=== PATIENT | male | born 1945 | race Caucasian/White ===

== ENCOUNTER → 2018-08-28 13:34 | Outpatient (CLI) | payer OTHER, SELFPAY ==
--- NOTE | 2018-08-28 | DI.ECHO.S_ITS ---
[facility] +---------+ : : [address] : [address] : : : : [address] : : : : Phone: [phone]+ Echocardiogram Report + + :Name: ELVIS WALLACE Study Date: 08/28/2018 Height: 71 in : :[facility] Weight: 228 lb : : Gender: Male BSA: 2.2 m2 : :: 1945 Age: 73 yrs BP: 148/70 mmHg: :Reason For Study: Mitral Valve - Replacement : : Performed By: Marycruz Avalos : :Referring: ROMEL LEES : + + Interpretation Summary Afib with controlled heart rate. Normal LV size and wall thickness. There is subtle septal hypokinesis c/w post-operative state. Otherwise normal wall motion. Normal LV systolic function. EF is 60-65%. Severe biatrial enlargement; borderline RV enlargement. Mitral valve is replaced by history with a mechanical bileaflet prosthesis. Prosthesis is functioning normally. Mean gradient is 6 mm Hg. Otherwise no significant valvular abnormalities. Compared to prior study 05/26/2010 no significant changes have occurred. Procedure: A two-dimensional transthoracic echocardiogram with color flow and Doppler was performed. The study quality was technically good. Comparison is made with the echocardiogram of . The patient was in atrial fibrillation with heart rates between 73-82 bpm during the exam. Left Ventricle: The left ventricle is normal in size, wall thickness, and systolic function without any focal wall motion abnormalities. The ejection fraction is estimated to be 60-65%. Diastolic function could not be accurately assessed due to atrial fibrillation. Right Ventricle: Borderline right ventricular enlargement. The right ventricular systolic function is normal. Atria: The left atrium is severely dilated. The right atrium is severely dilated. The interatrial septum is intact with no evidence for an atrial septal defect. Mitral Valve: There is a bi-leaflet ([employer]. [employer]) mechanical prosthesis. The prosthetic mitral valve is well-seated. There is no mitral regurgitation noted. Aortic Valve: The aortic valve is trileaflet. The aortic valve opens well. No aortic regurgitation is present. Tricuspid Valve: The tricuspid valve leaflets are thin and pliable. There is mild tricuspid regurgitation. The right ventricular systolic pressure is estimated to be at least 41 mmHg based on an estimated right atrial pressure of 8 mm Hg. Pulmonic Valve: The pulmonic valve is not well seen, but is grossly normal. There is trace pulmonic regurgitation. Great Vessels: The aortic root is mildly dilated. The ascending aorta is mildly enlarged. The aortic arch could not be visualized. The IVC is dilated (diameter is greater than 2.1 cm) yet it collapses greater than 50% with a sniff. This suggests a right atrial pressure of 8 mm Hg. Pericardium/ Pleura There is no pericardial effusion. There is no pleural effusion. MMode/2D Measurements & Calculations LVIDd: 4.3 cm Ao root diam: 3.9 cm LVIDs: 2.8 cm Aortic Jxn: 3.7 cm FS: 35.7 % asc Aorta Diam: 3.7 cm IVSd: 1.1 cm LVPWd: 0.86 cm LV shaffer. diameter/BSA (cm/m^2): 1.9 LV sys. diameter/BSA (cm/m^2): 1.3 LA dimension: 5.5 cm RA long axis: 6.6 cm LA A2 area: 36.5 cm2 RA area: 30.7 cm2 LA A4 area: 39.1 cm2 RA vol: 120.8 ml LA length (vol): 7.5 cm RA : 54.2 ml/m2 LA vol: 160.9 ml IVC diam: 2.1 cm LA vol index: 72.1 ml/m2 RVDd major: 6.2 cm RVD1 (basal): 4.7 cm RVD2 (mid): 3.6 cm Doppler Measurements & Calculations Ao V2 max: 145.9 cm/sec MV P1/2t: 98.2 msec Ao V2 mean: 86.4 cm/sec Ao max P.5 mmHg Ao mean P.6 mmHg Ao V2 VTI: 27.3 cm TR max dea: 287.2 cm/sec MV V2 mean: 107.4 cm/sec TR max P.0 mmHg MV mean P.0 mmHg PA V2 max: 77.7 cm/sec MV V2 VTI: 47.0 cm PA V2 mean: 49.7 cm/sec PA mean P.2 mmHg PA Accel Time: 0.13 sec MV P1/2t max dea: 212.2 cm/sec MVA(P1/2t): 2.2 cm2 Electronically signed by: Tari Morris M.D. on Reading Physician:08/29/2018 07:42 AM
== END ==
PROVIDERS: PCP Family Medicine; Visit Provider Family Medicine
DX: I07.1 Rheumatic tricuspid insufficiency (principal); Z95.2 Presence of prosthetic heart valve
CPT/HCPCS: 93306

== ENCOUNTER 2018-10-27 06:32 | Day surgery (SDC) | payer OTHER, SELFPAY ==
--- NOTE | 2018-10-27 | PATH_ITS ---
[facility] Accession Number: [id number] . 01 Material submitted: . PART A: colon - MID RIGHT COLON POLYP PART B: colon - TRANSVERSE COLON POLYP PART C: body - POLYP @25CM . 02 Diagnosis: A. Mid Right Colon, Polyp, Biopsy: Tubular adenoma. . B. Transverse Colon, Polyp, Biopsy: Tubular adenoma. . C. Colon, Polyp at 25 cm, Biopsy: Colonic mucosa with mild superficial hyperplastic-type changes. Negative for dysplasia and malignancy. MRV/10/29/2018 . 02 Electronically signed: . Niecy Schmitz MD, Pathologist NPI- [id number] . 01 Gross description: . Part A: MID RIGHT COLON POLYP: Received in formalin are 2 fragment(s) of mary, soft tissue measuring 0.3 x 0.3 x 0.2 cm to 0.4 x 0.3 x 0.3 cm which is entirely submitted and submitted entirely in 1 cassette(s) Part B: TRANSVERSE COLON POLYP: Received in formalin is 1 fragment(s) of mary, soft tissue measuring 0.3 x 0.2 x 0.2 cm which is entirely submitted and submitted entirely in 1 cassette(s) Part C: POLYP @25CM: Received in formalin is 1 fragment(s) of mary, soft tissue measuring 0.3 x 0.2 x 0.2 cm which is entirely submitted and submitted entirely in 1 cassette(s) /DMC /D[facility] . 02 Pathologist provided ICD-10: D12.3, D12.6 . 02 CPT . 037528, 267421, 311025 Performed at: [address], [place], [place] [id number] MD Damian Musa MD Phone: [phone] Performed at: 02 [facility] [address] [place] [id number] MD Niecy Schmitz MD Phone: [phone]
[2018-10-27 07:09] VITALS: BMI 30.2
[2018-10-27 07:14] VITALS: BP 162/83; PULSE 63; RESP 15; TEMP 36.6; O2SAT 96
[2018-10-27] MEDS: SODIUM CHLORIDE 0.9% 1,000 ML 84 ML IV (07:24)
[2018-10-27] MEDS: fentaNYL 250 MCG/5 ML INJ IV (08:20)
[2018-10-27] MEDS: MIDAZOLAM 5 MG/5 ML VIAL IV (08:26)
--- NOTE | 2018-10-27 09:02 | PM.PREOP ---
Pre-operative Note Interval Note History & Physical reviewed/Exam performed by Physician: Yes Changes to H&P: No ASA Class (for procedural sedation): III
--- NOTE | 2018-10-27 09:02 | PM.OP.1 ---
Operative Date/Time/Diagnoses Date of procedure: 10/27/18 Time of procedure: 09:02 Pre-op diagnosis: Personal history of colon polyps Post-op diagnosis: same Procedure & Clinicians Procedure: Colonoscopy to the cecum with polypectomy times three Same procedure as scheduled: Yes Indications: Last colonoscopy 5 years ago Anesthesia Type: Sedation (Versed 7 mg; fentanyl 200 micro g) Operative Notes Findings: 1. Adequate prep 2. Pedunculated polyp approximately 4 mm in the mid ascending colon-removed with snare and cautery and retained for pathology. A 2nd 2-3 mm sessile polyp across from the larger polyp removed with cold forceps and retained for pathology 3. 2-3 mm sessile polyp in the mid transverse colon removed with cold forceps and retained for pathology 4. 3 mm polyp at 25 cm removed with cold forceps and retained for pathology 5. Mild diverticulosis with primarily small pockets limited to the sigmoid region 6. Grade 1 internal hemorrhoids Closure Type: not applicable Specimen(s): other (See list above) Procedure in detail: After obtaining informed consent, the patient was brought to the GI suite and placed in the left lateral decubitus position on the examination table. After placement of appropriate monitors, the patient was given incremental doses of Versed and Fentanyl until an appropriate level of sedation was achieved. A time out was held per SCOAP protocol. A digital rectal examination was performed and did not reveal any masses or obstructing lesions. The colonoscope was gently passed into the patient's anus and the entire colon navigated to the level of the cecum with minimal difficulty. Once in the cecum, the scope was withdrawn being sure to go before and beyond all mucosal folds and prominences and get an excellent examination. The findings are noted above. At the level of the rectal vault, the scope was retroflexed and the internal anal canal was examined. The scope was straightened and air aspirated from the colon. The instrument was removed from the patient's body and the procedure was concluded. The patient was allowed to awaken from sedation without difficulty and taken to the post-anesthesia care unit in good condition. Total sedation time was 35 minutes Total withdrawal time was 27 minutes Complications: none Condition: stable Disposition: PACU Plan for aftercare: 1. Discharge home 2. We will contact you with pathology results and any additional recommendations 3. Plan for next colonoscopy in 5 years or as clinically indicated 4. Resume warfarin and Lovenox as previously scheduled
[2018-10-27 09:05] VITALS: BP 127/78; PULSE 67; RESP 14; TEMP 36.3; O2SAT 95
[2018-10-27 09:12] VITALS: BP 129/63; PULSE 68; RESP 15; O2SAT 95
[2018-10-27 09:16] VITALS: BP 130/83; PULSE 63; RESP 16; O2SAT 97
[2018-10-27 09:27] VITALS: BP 144/73; PULSE 66; RESP 16; O2SAT 96
[2018-10-27 09:50] VITALS: BP 146/72; PULSE 65; RESP 16; TEMP 36.3; O2SAT 98
--- NOTE | 2018-10-27 09:57 | SUR.PHASEII ---
0955: Pt stable on feet and has dressed self. Pt assisted into wheelchair and was taken to private vehicle with and Daughter in stable condition. D/C paperwork has been reviewed and Pt and indicate understanding.
--- NOTE | 2018-10-27 13:08 | HP_ITS ---
History of Present Illness Date Patient Seen: 10/27/18 Time Patient Seen: 13:08 Chief complaint: BLOODY STOOLS Narrative: Mr. 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 He was seen by Dr. Villafana in our clinic. He is on chronic anticoagulation for atrial fibrillation. He reports that he has had multiple colonoscopies in the past and has bled after each 1. Dr. Villafana gave him instructions and he has been taking Lovenox twice daily while holding his Coumadin. He presents for screening colonoscopy. Patient History Medical History Atrial fibrillation (Acute) Benign prostatic hyperplasia (Acute) Personal history of colonic polyps (Acute) Surgical History History of colonoscopy with polypectomy (Acute) History of mitral valve replacement (Acute) Family History Mother No known health problems Father No known health problems Social History household members: spouse Smoking Status: Former smoker Family & Social History Family History Mother No known health problems Father No known health problems Social History: household members spouse Prior Living Arrangements House Safety & Behavioral: Feels Safe in Current Yes Environment Been Physically Hurt or No Threatened By a Person Suicidal Ideation Description None Suicide Plan Description No Plan Tobacco & Substance use: Smoking Status Former smoker alcohol intake frequency 3 or more drinks per day Substance Use Type does not use Meds Home Medications Medication Instructions Recorded Confirmed Type aspirin 81 mg PO DAILY #0 09/02/11 10/29/18 History losartan 100 mg PO DAILY #0 09/02/11 10/29/18 History warfarin 12.5 mg PO QDAY #0 09/02/11 10/29/18 History digoxin 250 mcg tablet 0.25 mg PO DAILY 09/24/18 10/29/18 History enoxaparin 80 mg/0.8 mL 80 mg SUBCUT Q12H #7.2 ml 09/24/18 10/29/18 Rx subcutaneous syringe metoprolol tartrate 100 mg tablet 100 mg PO QAM tab 09/24/18 10/29/18 History metoprolol tartrate 50 mg tablet 50 mg PO .qhs tab 09/24/18 10/29/18 History multivitamin tablet 1 tab PO DAILY 09/24/18 10/29/18 History sulfamethoxazole-trimethoprim See Rx Instructions .ROUTE .COMPLEX 10/27/18 10/29/18 History tamsulosin 0.4 mg PO DAILY 10/27/18 10/29/18 History Allergies Allergy/AdvReac Type Severity Reaction Status Date / Time No Known Drug Allergies Allergy Verified 10/27/18 07:08 Review of Systems Review of Systems All systems reviewed & are unremarkable except as noted in HPI and below Exam Vital Signs (past 8 hours): - 11/04/18 05:28 11/04/18 08:46 11/04/18 08:54 Temperature 97.7 F Pulse Rate 77 76 Respiratory Rate 16 Blood Pressure 139/73 130/73 Pulse Oximetry 96 98 11/04/18 09:00 Temperature 97.6 F Pulse Rate 76 Respiratory Rate 16 Blood Pressure 130/73 Pulse Oximetry 98 Oxygen Delivery Method Room Air Oxygen Flow Rate 0 Narrative Exam Narrative: Pleasant gentleman in no distress HEENT: Normocephalic and atraumatic, pupils equal round reactive to light accommodation with anicteric sclera Lungs: Clear bilaterally Heart: Irregularly irregular Abdomen: Soft, nontender, active bowel sounds Extremities: Warm well perfused Objective Labs Result Diagrams: 11/04/18 05:15 11/04/18 05:15 Labs: Laboratory Results - last 24 hr 11/04/18 11/04/18 11/04/18 05:15 05:15 05:15 WBC 7.2 RBC 2.84 L Hgb 9.1 L Hct 27.1 L MCV 95.3 MCH 31.9 MCHC 33.5 RDW 14.4 Plt Count 307 Neut % (Auto) 57.7 Lymph % (Auto) 18.2 L [place] % (Auto) 14.6 H Eos % (Auto) 8.7 H Baso % (Auto) 0.8 Neut # (Auto) 4200 Lymph # (Auto) 1300 [place] # (Auto) 1100 H Eos # (Auto) 600 H Baso # (Auto) 100 PT 15.5 H INR 1.3 Sodium 130 L Potassium 3.3 L Chloride 96 L Carbon Dioxide 28 BUN 5 L Creatinine 0.70 Estimated GFR > 60.0 BUN/Creatinine Ratio 7.1 Glucose 105 Calcium 8.9 Magnesium 1.7 11/04/18 11:40 WBC RBC Hgb Hct MCV MCH MCHC RDW Plt Count Neut % (Auto) Lymph % (Auto) [place] % (Auto) Eos % (Auto) Baso % (Auto) Neut # (Auto) Lymph # (Auto) [place] # (Auto) Eos # (Auto) Baso # (Auto) PT 15.6 H INR 1.3 Sodium Potassium Chloride Carbon Dioxide BUN Creatinine Estimated GFR BUN/Creatinine Ratio Glucose Calcium Magnesium Assessment & Plan Assessment & Plan narrative: Very pleasant 73-year-old gentleman here for a repeat colonoscopy for history of colon polyps. We discussed the risks and benefits of the procedure including the risk of recurrent bleeding. The patient expressed a desire to complete the procedure. Signed By:<Electronically signed by Britany Calixto MD>11/04/18 4723
== END 2018-10-27 09:55 ==
LOC: ENDO 06:34
PROVIDERS: PCP Family Medicine; Visit Provider Surgery
PROC: 0DJD8ZZ Inspection of Lower Intestinal Tract, Via Natural or Artificial Opening Endoscopic (ICD-10-PCS; CPT 45378; principal; 2018-10-27 07:45)
DX: Z86.010 Personal history of colon polyps (principal); K64.8 Other hemorrhoids; K57.30 Diverticulosis of large intestine without perforation or abscess without bleeding; D12.3 Benign neoplasm of transverse colon; D12.6 Benign neoplasm of colon, unspecified; I48.91 Unspecified atrial fibrillation; N40.0 Benign prostatic hyperplasia without lower urinary tract symptoms; Z79.01 Long term (current) use of anticoagulants; Z87.891 Personal history of nicotine dependence
CPT/HCPCS: 45380; 99152; 99153; J2250; J3010

== ENCOUNTER 2018-10-28 20:00 | Inpatient (IN) | payer OTHER, SELFPAY ==
[2018-10-28 20:26] VITALS: BP 174/93; PULSE 88; RESP 17; TEMP 36.1; O2SAT 98; BMI 29.9
[2018-10-28 22:00] VITALS: BP 81/47
[2018-10-28 22:15] VITALS: BP 85/56
[2018-10-28] MEDS: SODIUM CHLORIDE 0.9% 1,000 ML 1000 ML IV (22:15)
[2018-10-28 22:18] LABS: Add Manual Diff / Slide Review NO; Basophils Absolute Auto 100 /uL (0-100); Basophils Percent Auto 0.8 % (0-2); Eosinophils Absolute Auto 300 /uL (0-450); Eosinophils Percent Auto 3.8 % (2-4); Hematocrit 39.9 % (41-53); Hemoglobin 13.5 g/dL (13.5-17.5); Lymphocytes Absolute Auto 1500 /uL (1100-4500); Lymphocytes Percent Auto 20.2 % (25-40); Mean Corpuscular HGB Conc 33.9 % (30-36); Mean Corpuscular Hemoglobin 32.7 PG (26-34); Mean Corpuscular Volume 96.5 fL (80-100); Monocytes Absolute Auto 800 /uL (0-900); Monocytes Percent Auto 10.2 % (3-14); Neutrophils Absolute Auto 4900 /uL (1500-7000); Platelet Count 222 X10^3/uL (150-400); Red Blood Cell Count 4.13 X10^6/uL (4.5-5.9); Red Cell Distribution Width 12.8 % (11.6-14.8); White Blood Cell Count 7.6 X10^3/uL (4.5-11.0)
[2018-10-28 22:24] LABS: INR 1.2 (0.9-1.3); Prothrombin Time 13.5 SECONDS (10.1-12.7)
[2018-10-28 22:27] LABS: PTT Partial Thromboplastin Tim 48 SECONDS (26.4-36.2)
--- NOTE | 2018-10-28 22:28 | PC.NURSE ---
Pt states sudden onset dizziness. Blood pressure 81/47. Notified provider. Gave 250mL bolus per Dr. Lovelace. Some improvement.
[2018-10-28 22:29] LABS: Alanine Aminotransferase 46 IU/L (21-72); Albumin 4.2 g/dL (3.5-5.0); Albumin Globulin Ratio 1.5 (1.0-2.8); Alkaline Phosphatase 80 U/L (38-126); Aspartate Aminotransferase 54 IU/L (17-59); BUN Creatinine Ratio 17.1 (6-22); Blood Urea Nitrogen 12 mg/dL (9-20); Calcium 9.3 mg/dL (8.4-10.2); Carbon Dioxide 23 mmol/L (22-32); Chloride 96 mmol/L (98-107); Estimated Glomerular Filt Rate > 60.0 mL/min (>60); Globulin 2.8 g/dL (1.7-4.1); Glucose 127 mg/dL (80-110); HEMOLYSIS < 15 (0-50); Potassium 4.2 mmol/L (3.4-5.1); Sodium 128 mmol/L (137-145)
[2018-10-28 22:45] VITALS: BP 145/73; PULSE 95; RESP 23
[2018-10-29] VITALS (26 sets, daily range): BP systolic 83–131; BP diastolic 39–98; PULSE 80–119; RESP 9–20; TEMP 36.1–36.9; O2SAT 93–99; BMI 29.9
--- NOTE | 2018-10-29 00:28 | P.HP_ITS ---
History of Present Illness Date Patient Seen: 10/28/18 Time Patient Seen: 23:55 Chief complaint: BLOODY STOOLS Narrative: The patient is a 73-year-old male with PMH of CAD, HTN, MINI B, BPH, MVR (AC w/ coumadin), and h/o colon popyps. Patient presented to the ED on 10/28/2017 after experiencing 7 episodes of blood stools. Stools described as dark red. Symptoms started at approximately 1600. Patient reports having an episode of bloody diarrhea every half an hour. After presentation to the ED patient experienced lightheadedness and fatigue. Until that time and earlier during the day did not experience abdominal pain, nausea or vomiting. Denies hematemesis, and hematochezia. Denies rectal pain with defecation. Patient does report abdominal distention and bloating since 10/24/2018, which he notes to have developed after starting lovenox injections. On the morning on 10/27/2017 patient underwent colonoscopy for routine colorectal surveilance. During the procedure 4 colon polyps removed in retained for pathology. Colonoscopy also revealed mild diverticulosis that was limited to the sigmoid colon and grade 1 internal hemorrhoids. Initial lab work on presentation to the ED revealed a hemoglobin of 13.5. Upon arrival to the ED he notes experiencing lightheadedness, at that time he was also found to be hypotensive. BP improved with 1 L NS bolus. Patient has not experienced any chest pain, palpitation, abdominal pain, hematemesis, or further episodes of blo cornelio diarrhea. Patient is known to be chronically anticoagulated w/ Coumadin. He was asked to have coumadin stopped on 10/24/2018 in lieu of colonoscopy, in the interim he was bridged with lovenox. Coumadin was restarted on the morning of 10/28/2018. He was instructed to continue lovenox bridge until 10/30/2017. Patient History Medical History Atrial fibrillation (Acute) Benign prostatic hyperplasia (Acute) Personal history of colonic polyps (Acute) Surgical History (Updated 10/29/18 @ 01:39 by SAMY Wooten) History of colonoscopy with polypectomy (Acute) History of mitral valve replacement (Acute) Family History Mother No known health problems Father No known health problems Social History household members: spouse Smoking Status: Former smoker Family & Social History Family History Mother No known health problems Father No known health problems Social History: household members spouse Safety & Behavioral: Feels Safe in Current Yes Environment Been Physically Hurt or No Threatened By a Person Tobacco & Substance use: Smoking Status Former smoker alcohol intake frequency 0-2 drinks per day Substance Use Type does not use Meds Home Medications Medication Instructions Recorded Confirmed Type aspirin 81 mg PO DAILY #0 09/02/11 10/29/18 History losartan 100 mg PO DAILY #0 09/02/11 10/29/18 History warfarin 12.5 mg PO QDAY #0 09/02/11 10/29/18 History digoxin 250 mcg tablet 0.25 mg PO DAILY 09/24/18 10/27/18 History enoxaparin 80 mg/0.8 mL 80 mg SUBCUT Q12H #7.2 ml 09/24/18 10/27/18 Rx subcutaneous syringe metoprolol tartrate 100 mg tablet 100 mg PO QAM tab 09/24/18 10/29/18 History metoprolol tartrate 50 mg tablet 50 mg PO .qhs tab 09/24/18 10/29/18 History multivitamin tablet 1 tab PO DAILY 09/24/18 10/29/18 History sulfamethoxazole-trimethoprim See Rx Instructions .ROUTE .COMPLEX 10/27/18 10/29/18 History tamsulosin 0.4 mg PO DAILY 10/27/18 10/29/18 History Allergies Allergy/AdvReac Type Severity Reaction Status Date / Time No Known Drug Allergies Allergy Verified 10/27/18 07:08 Review of Systems Review of Systems All systems reviewed & are unremarkable except as noted in HPI and below Exam Vital Signs (past 8 hours): - 10/28/18 20:26 10/28/18 22:00 10/28/18 22:15 Temperature 96.9 F L Pulse Rate 88 Respiratory Rate 17 Blood Pressure 174/93 H Blood Pressure [Left Arm] 81/47 L 85/56 L Pulse Oximetry 98 10/28/18 22:45 Temperature Pulse Rate 95 H Respiratory Rate 23 Blood Pressure Blood Pressure [Left Arm] 145/73 H Pulse Oximetry Oxygen Delivery Method Room Air Narrative Exam Narrative: Constitutional: NAD Neurologic: AOx3, no focal neurological deficits Head: NC, AT Eyes: pupils equal and reactive, EOMI Ears: external ears normal, no otorrhea Nose: external nose normal, no rhinorrhea or epistaxis Throat: dry MM, oropharynx w/o exudate Neck: no masses, lymphadenopathy, or JVD Chest / Respiratory: equal chest rise, unlabored respiratory effort, CTAB Heart / CV: Irregularly irregular, click present tachycardic with light activity Abdomen / GI: round, moderately distended, non-tender to palpation, hypoactive BS, hematoma / significant ecchymosis present in the area of slightly above left iliac fossa / umbilical region : no suprapubic tenderness, no CVA Peripheral / Vascular: warm to touch, DP and PT pulses palpable, trace pre- tibial BLE edema Musc: full ROM of upper and lower extremities, adequate muscle tone and bulk Skin: abdominal ecchymosis (see GI section) Objective Labs Result Diagrams: 10/29/18 04:57 10/29/18 04:57 Labs: Laboratory Results - last 24 hr 10/28/18 10/28/18 10/28/18 22:00 22:00 22:00 WBC 7.6 RBC 4.13 L Hgb 13.5 Hct 39.9 L MCV 96.5 MCH 32.7 MCHC 33.9 RDW 12.8 Plt Count 222 Neut % (Auto) 65.0 Lymph % (Auto) 20.2 L [place] % (Auto) 10.2 Eos % (Auto) 3.8 Baso % (Auto) 0.8 Neut # (Auto) 4900 Lymph # (Auto) 1500 [place] # (Auto) 800 Eos # (Auto) 300 Baso # (Auto) 100 PT 13.5 H INR 1.2 APTT 48 H Sodium 128 L Potassium 4.2 Chloride 96 L Carbon Dioxide 23 BUN 12 Creatinine 0.70 Estimated GFR > 60.0 BUN/Creatinine Ratio 17.1 Glucose 127 H Calcium 9.3 Total Bilirubin 1.0 AST 54 ALT 46 Alkaline Phosphatase 80 Total Protein 7.0 Albumin 4.2 Globulin 2.8 Albumin/Globulin Ratio 1.5 Blood Type Antibody Screen 10/28/18 22:00 WBC RBC Hgb Hct MCV MCH MCHC RDW Plt Count Neut % (Auto) Lymph % (Auto) [place] % (Auto) Eos % (Auto) Baso % (Auto) Neut # (Auto) Lymph # (Auto) [place] # (Auto) Eos # (Auto) Baso # (Auto) PT INR APTT Sodium Potassium Chloride Carbon Dioxide BUN Creatinine Estimated GFR BUN/Creatinine Ratio Glucose Calcium Total Bilirubin AST ALT Alkaline Phosphatase Total Protein Albumin Globulin Albumin/Globulin Ratio Blood Type A Positive Antibody Screen Negative Assessment & Plan Assessment & Plan narrative: Acute GI hemorrhage, present on admission Suspected to be a post polypectomy complication in the setting of active anticoagulation w/ coumadin, lovenox, and ASA Hgb 13.5. Reported x7 episodes of melonic stools - Admit to ICU in lieu of active bleeding and hypotension - Tele monitoring - H/H Q4H, next scheduled for 0200 - Consider blood transfusion for H/H </ 7 or if symptomatic patient agrees to blood transfusion if need arises - Consult General Surgery - NPO, strict - Hold coumadin, ASA, and lovenox Abdominal distention, acute, present on admission w/ associated mid abdominal bruising - abdominal U/S in am to r/o hematoma Hypovolemia, acute, present on admission 2/2 acute blood loss - IVF Permanent atrial fibrillation, chronic condition, present on admission AFIB w/ controlled ventricular rate [employer] SET UP OPERATOR on metoprolol, digoxin, and Coumadin - hold coumadin (last dose on 10/28/2017) - hold off on restarting metoprolol at this time given hypotension (typical home dose metoprolol tartrate 100 mg QAM and 50 mg QPM) - resume digoxin H/O mitral valve repair, chronic condition, present on admission Echo 08/28/2018 Mitral valve was replaced with a mechanical bileaflet prosthesis. Prosthesis is functioning normally. Mean gradient is 6 mmHg. Otherwise no significant valvular abnormalities. 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 Wishes to be a full code. No health directive. Designates as a surrogate decision maker. Home medications reviewed and reconciled accordingly. VTE prophylaxis SCDs and lovenox
[2018-10-29] MEDS: PANTOPRAZOLE 40 MG VIAL IV ×2 (00:45→07:31)
--- NOTE | 2018-10-29 00:52 | PC.NURSE ---
Pt does not have a medication list with her. i asked family to please bring list in to hospital as soon as they can get it
--- NOTE | 2018-10-29 01:02 | PC.NURSE ---
Attempted to call report,RN still not available
[2018-10-29] MEDS: SODIUM CHLORIDE 0.9% 1,000 ML 100 ML IV ×3 (01:42→18:37)
[2018-10-29 02:04] LABS: Hemoglobin 11.7 g/dL (13.5-17.5)
[2018-10-29 05:12] LABS: Add Manual Diff / Slide Review NO; Basophils Absolute Auto 0 /uL (0-100); Basophils Percent Auto 0.7 % (0-2); Eosinophils Absolute Auto 100 /uL (0-450); Eosinophils Percent Auto 2.3 % (2-4); Hematocrit 32.2 % (41-53); Hemoglobin 10.9 g/dL (13.5-17.5); Lymphocytes Absolute Auto 1100 /uL (1100-4500); Lymphocytes Percent Auto 21.1 % (25-40); Mean Corpuscular Hemoglobin 32.7 PG (26-34); Mean Corpuscular Volume 96.2 fL (80-100); Monocytes Absolute Auto 700 /uL (0-900); Monocytes Percent Auto 12.6 % (3-14); Neutrophils Absolute Auto 3300 /uL (1500-7000); Neutrophils Percent Auto 63.3 % (50-75); Platelet Count 203 X10^3/uL (150-400); Red Blood Cell Count 3.35 X10^6/uL (4.5-5.9); Red Cell Distribution Width 12.7 % (11.6-14.8); White Blood Cell Count 5.2 X10^3/uL (4.5-11.0)
[2018-10-29 05:22] LABS: BUN Creatinine Ratio 14.3 (6-22); Blood Urea Nitrogen 10 mg/dL (9-20); Calcium 8.4 mg/dL (8.4-10.2); Carbon Dioxide 25 mmol/L (22-32); Chloride 97 mmol/L (98-107); Estimated Glomerular Filt Rate > 60.0 mL/min (>60); Glucose 130 mg/dL (80-110); HEMOLYSIS < 15 (0-50); Magnesium 1.5 mg/dL (1.6-2.3); Potassium 4.3 mmol/L (3.4-5.1); Sodium 128 mmol/L (137-145)
--- NOTE | 2018-10-29 05:26 | PC.ADMIT ---
[facility] Admission Note: The patient,Baltazar Reeves,73 y/o, was given written information regarding hospital policies, unit procedures and contact persons. Patient's smoking status: Former smoker. Vital Signs - 8 hr 10/28/18 22:00 10/28/18 22:15 10/28/18 22:45 Temperature Pulse Rate 95 H Respiratory Rate 23 Blood Pressure Blood Pressure [Left Arm] 81/47 L 85/56 L 145/73 H Pulse Oximetry 10/29/18 01:21 10/29/18 01:40 10/29/18 02:00 Temperature 96.9 F L Pulse Rate 101 H 99 H 102 H Respiratory Rate 11 L 16 Blood Pressure 131/98 H 129/83 116/95 H Blood Pressure [Left Arm] Pulse Oximetry 97 95 96 10/29/18 03:00 10/29/18 04:06 10/29/18 04:30 Temperature 97.2 F L Pulse Rate 94 H 93 H 95 H Respiratory Rate 16 14 14 Blood Pressure 115/59 L 109/64 131/60 Blood Pressure [Left Arm] Pulse Oximetry 95 96 99 Patient admittted to ICU at 0130, A/Ox4, able to transfer from stretcher to bed, says he is lightheaded, HR tachy up to 120s during activity, then down to 100 at rest, A-fib. BP 129/83. Denies abdominal pain, nausea, or urge to have BM at this time. NS @ 100ml/hr infusing. Patient and family oriented to room. Bed alarm on. See assessment notes.
--- NOTE | 2018-10-29 05:32 | PC.NURSE ---
Addendum entered by Kyleigh Sagastume R.N. 10/29/18 06:26: Attempt to use urinal while in bed, no success, noted that patient has swollen scrotum, he says that is normal d/t BPH. Scanned for 324ml. Original Note: 0500-Assist to BSC for BM, had large bloody stool, liquid red with maroon clots, approximately 800ml per PERSONNEL CLERKS SUPERVISOR. Patient dizzy, pale, and diaphoretic, HR up to 140, placed on 4L O2, assist back to bed without difficulty, will use bedpan for further stools. BP 131/60. Am lab drawn. H/H = 10.9/32.2. Blood consent signed, 2nd PIV inserted.
--- NOTE | 2018-10-29 05:51 | ED_ITS ---
HPI - GI Bleed General Chief complaint: GI Bleed Stated complaint: BLOODY STOOLS Time Seen by Provider: 10/28/18 21:40 Source: patient and family Mode of arrival: ambulatory Limitations: no limitations History of Present Illness HPI Narrative: 73-year-old male nonsmoker anticoagulated on Coumadin for mechanical valve presents with his in the chief complaint of multiple bright red stools. Patient had a routine scheduled colonoscopy yesterday and had 5 polyps clipped. He was told to resume his normal dosing of Coumadin today. He has now had 7 bright red, bloody stools and has some grumbling in his abdomen but denies any pain. he is feeling a bit fatigued but is not profoundly dizzy. MD complaint: gross hematochezia Onset (ago): hour(s) Severity: moderate Context: history of GI bleed Treatments Prior to Arrival: none Related Data Home Medications Medication Instructions Recorded Confirmed aspirin 81 mg PO DAILY #0 09/02/11 10/29/18 losartan 100 mg PO DAILY #0 09/02/11 10/29/18 warfarin 12.5 mg PO QDAY #0 09/02/11 10/29/18 digoxin 250 mcg tablet 0.25 mg PO DAILY 09/24/18 10/27/18 metoprolol tartrate 100 mg tablet 100 mg PO QAM tab 09/24/18 10/29/18 metoprolol tartrate 50 mg tablet 50 mg PO .qhs tab 09/24/18 10/29/18 multivitamin tablet 1 tab PO DAILY 09/24/18 10/29/18 sulfamethoxazole-trimethoprim See Rx Instructions .ROUTE .COMPLEX 10/27/18 10/29/18 tamsulosin 0.4 mg PO DAILY 10/27/18 10/29/18 Previous Rx's Medication Instructions Recorded enoxaparin 80 mg/0.8 mL 80 mg SUBCUT Q12H #7.2 ml 09/24/18 subcutaneous syringe Allergies Allergy/AdvReac Type Severity Reaction Status Date / Time No Known Drug Allergies Allergy Verified 10/27/18 07:08 Review of Systems Constitutional Denies chills, Denies fever(s), Denies lethargy and Denies weakness Eyes Denies change in vision, Denies eye discharge, Denies irritation and Denies loss of vision ENT Ears, Nose, Mouth, and Throat: Denies change in voice, Denies neck pain and De nies sore throat Cardiovascular Denies chest pain, Denies irregular heart rhythm, Denies lightheadedness, Denies palpitations, Denies dyspnea, Denies dyspnea on exertion and Denies orthopnea Respiratory Denies cough, Denies dyspnea, Denies dyspnea on exertion and Denies wheezing Gastrointestinal Gastrointestinal: Denies abdominal pain, Reports hematochezia, Reports change in bowel habits, Denies diarrhea, Denies nausea and Denies vomiting Genitourinary Denies hematuria, Denies flank pain, Denies urinary incontinence and Denies urinary urgency Musculoskeletal Denies neck pain Integumentary/Breasts Denies pruritus, Denies erythema, Denies rash and Denies wounds Neurologic Denies confusion, Denies loss of vision and Denies weakness Psychiatric Denies anxiety, Denies confusion, Denies depression, Denies homicidal ideation and Denies suicidal ideation Endocrine Denies palpitations Hematologic/Lymphatic Denies easy bruising Allergic/Immunologic Denies wheezing [facility] Medical History Atrial fibrillation (Acute) Benign prostatic hyperplasia (Acute) Personal history of colonic polyps (Acute) Surgical History (Updated 10/29/18 @ 01:39 by SAMY Wooten) History of colonoscopy with polypectomy (Acute) History of mitral valve replacement (Acute) Family History Mother No known health problems Father No known health problems Social History household members: spouse Smoking Status: Former smoker Family History Mother No known health problems Father No known health problems Social History household members: spouse Smoking Status: Former smoker Exam Narrative Exam Narrative: GENERAL: 73-year-old male appears stated age, in mild distress, obviously not feeling well HEAD: Atraumatic. Normocephalic. No temporal or scalp tenderness. EYES: Pupils equal round and reactive. Extraocular motions intact. No scleral icterus. No injection or drainage. ENT: Nose without bleeding, purulent drainage or septal hematoma. Throat without erythema, tonsillar hypertrophy or exudate. Uvula midline. Airway patent. NECK: Trachea midline. No JVD or lymphadenopathy. Supple, nontender, no meningeal signs. CARDIOVASCULAR: Regular rate and rhythm without murmurs, gallops, or rubs. RESPIRATORY: Clear to auscultation. Breath sounds equal bilaterally. No wheezes, rales, or rhonchi. GASTROINTESTINAL: Abdomen soft, non-tender, mild distention with increased bowel sounds. RECTAL: mild gross blood. No hemorrhoids or fissure EXTREMITIES: No clubbing, cyanosis, or edema. No joint tenderness, effusion, or edema noted. BACK: Nontender without deformity or crepitance. No flank tenderness. NEURO: AOx3. SKIN: No rash or erythema. Initial Vital Signs Initial Vital Signs: Vital Signs Temperature 96.9 F L 10/28/18 20:26 Pulse Rate 88 10/28/18 20:26 Respiratory Rate 17 10/28/18 20:26 Blood Pressure 174/93 H 10/28/18 20:26 Pulse Oximetry 98 10/28/18 20:26 Course Orders Ordered: ED Orders 10/28/18 22:00 Complete Blood Count AUTO DIFF Stat Comprehensive Metabolic Panel Stat Partial Thromboplastin Time Stat Prothrombin Time INR Stat Type and Screen Stat 10/29/18 01:45 MRSA PCR Stat 10/29/18 01:50 Hemoglobin Stat 10/29/18 03:40 Consult to General Surgery Routine 10/29/18 04:57 Basic Metabolic Panel Stat Complete Blood Count AUTO DIFF Stat Magnesium Stat Acetaminophen (Tylenol) 650 mg PO Q6HR PRN PRN Reason: As Needed for Fever/Mild Pain Sodium Chloride (Normal Saline 0.9%) 1,000 mls @ 100 mls/hr IV CONT COBY Last Admin: 10/29/18 01:42 Dose: 100 mls/hr Multivitamins (Tab-A-Oliver) 1 tab PO DAILY COBY Pantoprazole Sodium (Protonix) 40 mg IV DAILY COBY Last Admin: 10/29/18 00:45 Dose: 40 mg Tamsulosin HCl (Flomax) 0.4 mg PO DAILY [facility] Discontinued Medications Sodium Chloride (Normal Saline 0.9%) 1,000 mls @ 1,000 mls/hr IV BOLUS ONE Stop: 10/28/18 23:22 Last Infusion: 10/28/18 22:48 Dose: 0 mls/hr Admin: 10/28/18 22:15 Dose: 1,000 mls/hr Reevaluation(s) Reevaluation #1: The toe attempting to allow permissive hypotension while awaiting labs I was called to the bedside and the patient had become dizzy and lightheaded and nauseated. Blood pressure was noted to be in the 80s, IV fluids administered at 250 cc bolus and patient's pressure bumped back to 111 and he remained asymptomatic for the duration of his visit Consultations Consultation #1: call to General Surgery (Dominik) whom is happy to play a role in evaluation of patient in hospital Consultation #2: call to hospitalist whom is happy to accept patient Vital Signs - 8 hr 10/28/18 22:00 10/28/18 22:15 10/28/18 22:45 Temperature Pulse Rate 95 H Respiratory Rate 23 Blood Pressure Blood Pressure [Left Arm] 81/47 L 85/56 L 145/73 H Pulse Oximetry 10/29/18 01:21 10/29/18 01:40 10/29/18 02:00 Temperature 96.9 F L Pulse Rate 101 H 99 H 102 H Respiratory Rate 11 L 16 Blood Pressure 131/98 H 129/83 116/95 H Blood Pressure [Left Arm] Pulse Oximetry 97 95 96 10/29/18 03:00 10/29/18 04:06 10/29/18 04:30 Temperature 97.2 F L Pulse Rate 94 H 93 H 95 H Respiratory Rate 16 14 14 Blood Pressure 115/59 L 109/64 131/60 Blood Pressure [Left Arm] Pulse Oximetry 95 96 99 MDM - GI Bleed Medical Records Attestation: I reviewed the patient's medical records. Lab Data Attestation: I reviewed the patient's lab results. Result diagrams: 10/29/18 04:57 10/29/18 04:57 Lab Results 10/28/18 10/28/18 10/28/18 Range/Units 22:00 22:00 22:00 WBC 7.6 (4.5-11.0) X10^3/uL RBC 4.13 L (4.5-5.9) X10^6/uL Hgb 13.5 (13.5-17.5) g/dL Hct 39.9 L (41-53) % MCV 96.5 (80-100) fL MCH 32.7 (26-34) PG MCHC 33.9 (30-36) % RDW 12.8 (11.6-14.8) % Plt Count 222 (150-400) X10^3/uL Neut % (Auto) 65.0 (50-75) % Lymph % (Auto) 20.2 L (25-40) % [place] % (Auto) 10.2 (3-14) % Eos % (Auto) 3.8 (2-4) % Baso % (Auto) 0.8 (0-2) % Neut # (Auto) 4900 (9760-7441) /uL Lymph # (Auto) 1500 (6757-2504) /uL [place] # (Auto) 800 (0-900) /uL Eos # (Auto) 300 (0-450) /uL Baso # (Auto) 100 (0-100) /uL PT 13.5 H (10.1-12.7) SECONDS INR 1.2 (0.9-1.3) APTT 48 H (26.4-36.2) SECONDS Sodium 128 L (137-145) mmol/L Potassium 4.2 (3.4-5.1) mmol/L Chloride 96 L (98-107) mmol/L Carbon Dioxide 23 (22-32) mmol/L BUN 12 (9-20) mg/dL Creatinine 0.70 (0.66-1.25) mg/dL Estimated GFR > 60.0 (>60) mL/min BUN/Creatinine Ratio 17.1 (6-22) Glucose 127 H (80-110) mg/dL Calcium 9.3 (8.4-10.2) mg/dL Magnesium (1.6-2.3) mg/dL Total Bilirubin 1.0 (0.2-1.3) mg/dL AST 54 (17-59) IU/L ALT 46 (21-72) IU/L Alkaline Phosphatase 80 (38-126) U/L Total Protein 7.0 (6.3-8.2) g/dL Albumin 4.2 (3.5-5.0) g/dL Globulin 2.8 (1.7-4.1) g/dL Albumin/Globulin Ratio 1.5 (1.0-2.8) Nasal Screen MRSA (PCR) (Negative) Blood Type Antibody Screen 10/28/18 10/29/18 10/29/18 Range/Units 22:00 01:45 01:50 WBC (4.5-11.0) X10^3/uL RBC (4.5-5.9) X10^6/uL Hgb 11.7 L (13.5-17.5) g/dL Hct (41-53) % MCV (80-100) fL MCH (26-34) PG MCHC (30-36) % RDW (11.6-14.8) % Plt Count (150-400) X10^3/uL Neut % (Auto) (50-75) % Lymph % (Auto) (25-40) % [place] % (Auto) (3-14) % Eos % (Auto) (2-4) % Baso % (Auto) (0-2) % Neut # (Auto) (3588-9479) /uL Lymph # (Auto) (9916-7112) /uL [place] # (Auto) (0-900) /uL Eos # (Auto) (0-450) /uL Baso # (Auto) (0-100) /uL PT (10.1-12.7) SECONDS INR (0.9-1.3) APTT (26.4-36.2) SECONDS Sodium (137-145) mmol/L Potassium (3.4-5.1) mmol/L Chloride (98-107) mmol/L Carbon Dioxide (22-32) mmol/L BUN (9-20) mg/dL Creatinine (0.66-1.25) mg/dL Estimated GFR (>60) mL/min BUN/Creatinine Ratio (6-22) Glucose (80-110) mg/dL Calcium (8.4-10.2) mg/dL Magnesium (1.6-2.3) mg/dL Total Bilirubin (0.2-1.3) mg/dL AST (17-59) IU/L ALT (21-72) IU/L Alkaline Phosphatase (38-126) U/L Total Protein (6.3-8.2) g/dL Albumin (3.5-5.0) g/dL Globulin (1.7-4.1) g/dL Albumin/Globulin Ratio (1.0-2.8) Nasal Screen MRSA (PCR) Negative for mrsa (Negative) Blood Type A Positive Antibody Screen Negative 10/29/18 10/29/18 Range/Units 04:57 04:57 WBC 5.2 (4.5-11.0) X10^3/uL RBC 3.35 L (4.5-5.9) X10^6/uL Hgb 10.9 L (13.5-17.5) g/dL Hct 32.2 L (41-53) % MCV 96.2 (80-100) fL MCH 32.7 (26-34) PG MCHC 34.0 (30-36) % RDW 12.7 (11.6-14.8) % Plt Count 203 (150-400) X10^3/uL Neut % (Auto) 63.3 (50-75) % Lymph % (Auto) 21.1 L (25-40) % [place] % (Auto) 12.6 (3-14) % Eos % (Auto) 2.3 (2-4) % Baso % (Auto) 0.7 (0-2) % Neut # (Auto) 3300 (4152-3765) /uL Lymph # (Auto) 1100 (9559-1761) /uL [place] # (Auto) 700 (0-900) /uL Eos # (Auto) 100 (0-450) /uL Baso # (Auto) 0 (0-100) /uL PT (10.1-12.7) SECONDS INR (0.9-1.3) APTT (26.4-36.2) SECONDS Sodium 128 L (137-145) mmol/L Potassium 4.3 (3.4-5.1) mmol/L Chloride 97 L (98-107) mmol/L Carbon Dioxide 25 (22-32) mmol/L BUN 10 (9-20) mg/dL Creatinine 0.70 (0.66-1.25) mg/dL Estimated GFR > 60.0 (>60) mL/min BUN/Creatinine Ratio 14.3 (6-22) Glucose 130 H (80-110) mg/dL Calcium 8.4 (8.4-10.2) mg/dL Magnesium 1.5 L (1.6-2.3) mg/dL Total Bilirubin (0.2-1.3) mg/dL AST (17-59) IU/L ALT (21-72) IU/L Alkaline Phosphatase (38-126) U/L Total Protein (6.3-8.2) g/dL Albumin (3.5-5.0) g/dL Globulin (1.7-4.1) g/dL Albumin/Globulin Ratio (1.0-2.8) Nasal Screen MRSA (PCR) (Negative) Blood Type Antibody Screen MDM Narrative Medical decision making narrative: 73-year-old male, anticoagulated with recent colonoscopy and biopsies presents with bright red blood per rectum. Though initial H&H is stable and INR is in normal range the patient poses a high risk. He did have a near syncopal episode with blood pressure down in the 80s which responded to fluids. He requires hospitalization for ongoing evaluation and potential stabilization of his illness Discharge Plan Departure Patient Disposition: Admitted As Inpatient Clinical Impression: Acute GI bleeding Discharge Date/Time: 10/29/18 01:22 Interventions: ED Discharge Assessment Last Done: 10/29/18 01:21 Admit Date/Time: 10/28/18 23:33 Admit Provider: Barby Corrales
--- NOTE | 2018-10-29 06:44 | PM.EVENT ---
Date Patient Seen: 10/29/18 Time Patient Seen: 06:44 Patient had 1 large maroon appearing stool overnight. Hemoglobin trending down, this morning at 10.9 g/dL, nearly a 3 g drop over the past 8 hours. AM labs reveal hyponatremia, despite IV fluid resuscitation over night. Will give him 500 cc NS bolus this morning. He has had no urine output overnight. Requested a bladder scan, he did have slightly over 300. Will place a Batista for acute urinary retention. Patient was up to the commode earlier for the bowel movement and was highly symptomatic, ie tachycardic, diaphoretic and lightheaded per RN's report. Patient has been type and screen. His blood consent has been signed. He does have pending draws for 10:00 a.m. and 2:00 p.m. for hemoglobin Magnesium 1.5 this morning on lab, will replete with 2 g of Mag sulfate.
[2018-10-29] MEDS: MAGNESIUM SULFATE 2 GM/50 ML PIGGYBACK IV (07:31)
[2018-10-29] MEDS: SODIUM CHLORIDE 0.9% 250 ML 1000 ML IV (09:00)
--- NOTE | 2018-10-29 09:15 | PC.NURSE ---
Addendum entered by Kym Cameron R.N. 10/29/18 12:14: BP improved post bolus with SBP in the low 100s (see VS trends). Received PO metoprolol per MD order with sips of water. HR now 80s at rest, continues in afib and does increase to 120s with activity (turning in bed). One additional small bloody stool with clots at this time. Original Note: Day Shift Note Pt alert and oriented x3. 2 small-med. bloody stools this AM with visible clots via bedpan. Very symptomatic with any movement such as sitting up in bed or repositioning, reports dizziness and HR up to 140s, visibly pale. Afib RVR - rate is 100-110s bpm at rest. Denies pain. Abdomen is distended and feels bloated per pt. NPO. Oxygen sats 95% RA. Batista catheter placed this AM without issue, about 300 ml clear yellow urine resulted. BP trending down (see documented VS). Latest pressure 83/41 (63). Dr. Hickman on rounds and updated on all of the above. Order received for NS 250 ml bolus which is infusing at this time and new labs ordered. Pt's call light is within reach, using appropriately to make needs known.
[2018-10-29 10:00] LABS: Hematocrit 28.8 % (41-53)
[2018-10-29 10:02] LABS: INR 1.1 (0.9-1.3); Prothrombin Time 13.2 SECONDS (10.1-12.7)
[2018-10-29 10:05] LABS: PTT Partial Thromboplastin Tim 37 SECONDS (26.4-36.2)
--- NOTE | 2018-10-29 10:11 | PM.CN ---
History of Present Illness Chief complaint: BLOODY STOOLS [facility] Medical History Atrial fibrillation (Acute) Benign prostatic hyperplasia (Acute) Personal history of colonic polyps (Acute) Surgical History History of colonoscopy with polypectomy (Acute) History of mitral valve replacement (Acute) Family History Mother No known health problems Father No known health problems Social History household members: spouse Smoking Status: Former smoker Family History Mother No known health problems Father No known health problems Social History household members: spouse Smoking Status: Former smoker Meds Home Medications Medication Instructions Recorded Confirmed Type aspirin 81 mg PO DAILY #0 09/02/11 10/29/18 History losartan 100 mg PO DAILY #0 09/02/11 10/29/18 History warfarin 12.5 mg PO QDAY #0 09/02/11 10/29/18 History digoxin 250 mcg tablet 0.25 mg PO DAILY 09/24/18 10/29/18 History enoxaparin 80 mg/0.8 mL 80 mg SUBCUT Q12H #7.2 ml 09/24/18 10/29/18 Rx subcutaneous syringe metoprolol tartrate 100 mg tablet 100 mg PO QAM tab 09/24/18 10/29/18 History metoprolol tartrate 50 mg tablet 50 mg PO .qhs tab 09/24/18 10/29/18 History multivitamin tablet 1 tab PO DAILY 09/24/18 10/29/18 History sulfamethoxazole-trimethoprim See Rx Instructions .ROUTE .COMPLEX 10/27/18 10/29/18 History tamsulosin 0.4 mg PO DAILY 10/27/18 10/29/18 History Allergies Allergy/AdvReac Type Severity Reaction Status Date / Time No Known Drug Allergies Allergy Verified 10/27/18 07:08 Review of Systems Cardiovascular Cardiovascular: Reports fast heart rate and Reports irregular heart rhythm Gastrointestinal Gastrointestinal: Reports hematochezia Exam Vital Signs (past 8 hours): - 10/29/18 03:00 10/29/18 04:06 10/29/18 04:30 Temperature 97.2 F L Pulse Rate 94 H 93 H 95 H Respiratory Rate 16 14 14 Blood Pressure 115/59 L 109/64 131/60 Pulse Oximetry 95 96 99 10/29/18 06:00 10/29/18 07:00 10/29/18 08:00 Temperature 98.1 F Pulse Rate 102 H 108 H 118 H Respiratory Rate 12 16 Blood Pressure 92/60 125/67 94/51 L Pulse Oximetry 96 97 98 10/29/18 09:00 10/29/18 09:35 Temperature Pulse Rate 106 H 98 H Respiratory Rate 20 12 Blood Pressure 83/41 L 100/56 L Pulse Oximetry 95 94 Oxygen Delivery Method Nasal Cannula Oxygen Flow Rate 2 Narrative Exam Narrative: Patient is alert and oriented. heart rate ranging from 110-130. patient has atrial fibrillation. Abdominal exam is completely benign. No abdominal tenderness. Patient has been having hematochezia. Objective Labs Result Diagrams: 10/29/18 09:35 10/29/18 04:57 Labs: Laboratory Results - last 24 hr 10/28/18 10/28/18 10/28/18 22:00 22:00 22:00 WBC 7.6 RBC 4.13 L Hgb 13.5 Hct 39.9 L MCV 96.5 MCH 32.7 MCHC 33.9 RDW 12.8 Plt Count 222 Neut % (Auto) 65.0 Lymph % (Auto) 20.2 L [place] % (Auto) 10.2 Eos % (Auto) 3.8 Baso % (Auto) 0.8 Neut # (Auto) 4900 Lymph # (Auto) 1500 [place] # (Auto) 800 Eos # (Auto) 300 Baso # (Auto) 100 PT 13.5 H INR 1.2 APTT 48 H Sodium 128 L Potassium 4.2 Chloride 96 L Carbon Dioxide 23 BUN 12 Creatinine 0.70 Estimated GFR > 60.0 BUN/Creatinine Ratio 17.1 Glucose 127 H Calcium 9.3 Magnesium Total Bilirubin 1.0 AST 54 ALT 46 Alkaline Phosphatase 80 Total Protein 7.0 Albumin 4.2 Globulin 2.8 Albumin/Globulin Ratio 1.5 Nasal Screen MRSA (PCR) Blood Type Antibody Screen 10/28/18 10/29/18 10/29/18 22:00 01:45 01:50 WBC RBC Hgb 11.7 L Hct MCV MCH MCHC RDW Plt Count Neut % (Auto) Lymph % (Auto) [place] % (Auto) Eos % (Auto) Baso % (Auto) Neut # (Auto) Lymph # (Auto) [place] # (Auto) Eos # (Auto) Baso # (Auto) PT INR APTT Sodium Potassium Chloride Carbon Dioxide BUN Creatinine Estimated GFR BUN/Creatinine Ratio Glucose Calcium Magnesium Total Bilirubin AST ALT Alkaline Phosphatase Total Protein Albumin Globulin Albumin/Globulin Ratio Nasal Screen MRSA (PCR) Negative for mrsa Blood Type A Positive Antibody Screen Negative 10/29/18 10/29/18 10/29/18 04:57 04:57 09:35 WBC 5.2 RBC 3.35 L Hgb 10.9 L 10.0 L Hct 32.2 L 28.8 L MCV 96.2 MCH 32.7 MCHC 34.0 RDW 12.7 Plt Count 203 Neut % (Auto) 63.3 Lymph % (Auto) 21.1 L [place] % (Auto) 12.6 Eos % (Auto) 2.3 Baso % (Auto) 0.7 Neut # (Auto) 3300 Lymph # (Auto) 1100 [place] # (Auto) 700 Eos # (Auto) 100 Baso # (Auto) 0 PT INR APTT Sodium 128 L Potassium 4.3 Chloride 97 L Carbon Dioxide 25 BUN 10 Creatinine 0.70 Estimated GFR > 60.0 BUN/Creatinine Ratio 14.3 Glucose 130 H Calcium 8.4 Magnesium 1.5 L Total Bilirubin AST ALT Alkaline Phosphatase Total Protein Albumin Globulin Albumin/Globulin Ratio Nasal Screen MRSA (PCR) Blood Type Antibody Screen 10/29/18 09:35 WBC RBC Hgb Hct MCV MCH MCHC RDW Plt Count Neut % (Auto) Lymph % (Auto) [place] % (Auto) Eos % (Auto) Baso % (Auto) Neut # (Auto) Lymph # (Auto) [place] # (Auto) Eos # (Auto) Baso # (Auto) PT 13.2 H INR 1.1 APTT 37 H D Sodium Potassium Chloride Carbon Dioxide BUN Creatinine Estimated GFR BUN/Creatinine Ratio Glucose Calcium Magnesium Total Bilirubin AST ALT Alkaline Phosphatase Total Protein Albumin Globulin Albumin/Globulin Ratio Nasal Screen MRSA (PCR) Blood Type Antibody Screen Assessment & Plan Assessment & Plan narrative: Patient had a colonoscopy 48 hours ago with polypectomy. Polyps ranging from 2 mm to 4 mm 4 polyps were removed. subsequent to that patient has had numerous bloody stools. He came to the emergency room last night with a hemoglobin of 13 it has dropped now to 10 this morning. Patient has continued to have several bloody stools after being admitted. Patient has a mitral valve replacement and is on Coumadin therapy at home and this was bridged with Lovenox for the time of his colonoscopy. Patient has fairly rapid response atrial fibrillation. I would recommend continuing his beta-kourtney therapy to try to get this heart rate under control. Overall plan is bedrest bowel rest careful observation of hemoglobin levels. Possible transfusion if hemoglobin drops to the range of 8.0. At this point I would rather not reintroduce colonoscopy but simply observe him with bed rest. At this point he is stable and does not require transfusion.
--- NOTE | 2018-10-29 10:25 | P.DS_ITS ---
History of Present Illness Chief complaint: BLOODY STOOLS Discharge Providers Date of admission: 10/28/18 23:33 Primary care physician: Ambar Duran MD Consults: 10/29/18 03:40 Consult to General Surgery Routine Comment: Consulting Provider: David Lehman Reason for consultation: GIB Has provider been notified: No Discharge provider: Nicky Hickman MD Summary Discharge Diagnosis: 1. Multiple subacute and chronic rib fracture 2. Acute congestive heart failure with preserved systolic function, severely dilated left atrium 3. Chronic kidney disease stage 3 4. Anemia of chronic disease 5. Type 2 diabetes 6. Hypertension 7. Hyperlipidemia 8. Hypothyroid 9. Alzheimer's dementia without behavioral disturbance Exam Vital Signs (past 8 hours): - 10/29/18 03:00 10/29/18 04:06 10/29/18 04:30 Temperature 97.2 F L Pulse Rate 94 H 93 H 95 H Respiratory Rate 16 14 14 Blood Pressure 115/59 L 109/64 131/60 Pulse Oximetry 95 96 99 10/29/18 06:00 10/29/18 07:00 10/29/18 08:00 Temperature 98.1 F Pulse Rate 102 H 108 H 118 H Respiratory Rate 12 16 Blood Pressure 92/60 125/67 94/51 L Pulse Oximetry 96 97 98 10/29/18 09:00 10/29/18 09:35 Temperature Pulse Rate 106 H 98 H Respiratory Rate 20 12 Blood Pressure 83/41 L 100/56 L Pulse Oximetry 95 94 Oxygen Delivery Method Nasal Cannula Oxygen Flow Rate 2 Objective Labs Result Diagrams: 10/29/18 09:35 10/29/18 04:57 Labs: Laboratory Results - last 24 hr 10/28/18 10/28/18 10/28/18 22:00 22:00 22:00 WBC 7.6 RBC 4.13 L Hgb 13.5 Hct 39.9 L MCV 96.5 MCH 32.7 MCHC 33.9 RDW 12.8 Plt Count 222 Neut % (Auto) 65.0 Lymph % (Auto) 20.2 L [place] % (Auto) 10.2 Eos % (Auto) 3.8 Baso % (Auto) 0.8 Neut # (Auto) 4900 Lymph # (Auto) 1500 [place] # (Auto) 800 Eos # (Auto) 300 Baso # (Auto) 100 PT 13.5 H INR 1.2 APTT 48 H Sodium 128 L Potassium 4.2 Chloride 96 L Carbon Dioxide 23 BUN 12 Creatinine 0.70 Estimated GFR > 60.0 BUN/Creatinine Ratio 17.1 Glucose 127 H Calcium 9.3 Magnesium Total Bilirubin 1.0 AST 54 ALT 46 Alkaline Phosphatase 80 Total Protein 7.0 Albumin 4.2 Globulin 2.8 Albumin/Globulin Ratio 1.5 Nasal Screen MRSA (PCR) Blood Type Antibody Screen 10/28/18 10/29/18 10/29/18 22:00 01:45 01:50 WBC RBC Hgb 11.7 L Hct MCV MCH MCHC RDW Plt Count Neut % (Auto) Lymph % (Auto) [place] % (Auto) Eos % (Auto) Baso % (Auto) Neut # (Auto) Lymph # (Auto) [place] # (Auto) Eos # (Auto) Baso # (Auto) PT INR APTT Sodium Potassium Chloride Carbon Dioxide BUN Creatinine Estimated GFR BUN/Creatinine Ratio Glucose Calcium Magnesium Total Bilirubin AST ALT Alkaline Phosphatase Total Protein Albumin Globulin Albumin/Globulin Ratio Nasal Screen MRSA (PCR) Negative for mrsa Blood Type A Positive Antibody Screen Negative 10/29/18 10/29/18 10/29/18 04:57 04:57 09:35 WBC 5.2 RBC 3.35 L Hgb 10.9 L 10.0 L Hct 32.2 L 28.8 L MCV 96.2 MCH 32.7 MCHC 34.0 RDW 12.7 Plt Count 203 Neut % (Auto) 63.3 Lymph % (Auto) 21.1 L [place] % (Auto) 12.6 Eos % (Auto) 2.3 Baso % (Auto) 0.7 Neut # (Auto) 3300 Lymph # (Auto) 1100 [place] # (Auto) 700 Eos # (Auto) 100 Baso # (Auto) 0 PT INR APTT Sodium 128 L Potassium 4.3 Chloride 97 L Carbon Dioxide 25 BUN 10 Creatinine 0.70 Estimated GFR > 60.0 BUN/Creatinine Ratio 14.3 Glucose 130 H Calcium 8.4 Magnesium 1.5 L Total Bilirubin AST ALT Alkaline Phosphatase Total Protein Albumin Globulin Albumin/Globulin Ratio Nasal Screen MRSA (PCR) Blood Type Antibody Screen 10/29/18 09:35 WBC RBC Hgb Hct MCV MCH MCHC RDW Plt Count Neut % (Auto) Lymph % (Auto) [place] % (Auto) Eos % (Auto) Baso % (Auto) Neut # (Auto) Lymph # (Auto) [place] # (Auto) Eos # (Auto) Baso # (Auto) PT 13.2 H INR 1.1 APTT 37 H D Sodium Potassium Chloride Carbon Dioxide BUN Creatinine Estimated GFR BUN/Creatinine Ratio Glucose Calcium Magnesium Total Bilirubin AST ALT Alkaline Phosphatase Total Protein Albumin Globulin Albumin/Globulin Ratio Nasal Screen MRSA (PCR) Blood Type Antibody Screen Discharge Plan Discharge Med Rec/Prescriptions Prescriptions: No Action losartan 50 MG tablet 100 mg PO DAILY Qty: 0 RF: 0 warfarin 10 MG tablet 12.5 mg PO QDAY Qty: 0 RF: 0 aspirin 81 mg Tablet,Delayed Release (Dr/Ec) 81 mg PO DAILY Qty: 0 RF: 0 multivitamin tablet 1 tab PO DAILY RF: 0 metoprolol tartrate 100 mg tablet 100 mg PO QAM RF: 0 metoprolol tartrate 50 mg tablet 50 mg PO .qhs RF: 0 digoxin 250 mcg tablet 0.25 mg PO DAILY RF: 0 enoxaparin [Lovenox] 80 mg/0.8 mL syringe 80 mg SUBCUT Q12H Qty: 7.2 RF: 0 sulfamethoxazole-trimethoprim 400-80 mg Tablet See Rx Instructions .ROUTE .COMPLEX RF: 0 tamsulosin 0.4 mg Capsule 0.4 mg PO DAILY RF: 0 Follow up/Referrals: Ambar Duran MD [Primary Care Provider] - Discharge Data Primary Care Provider: Ambar Duran Attending Provider: Barby Corrales Admit Date/Time: 10/28/18 23:33
[2018-10-29] MEDS: METOPROLOL IR 50 MG TABLET 100 MG PO (10:48)
--- NOTE | 2018-10-29 12:59 | PM.PN.1 ---
Subjective Date Patient Seen: 10/29/18 Interval history: The patient is a 73-year-old male admitted to the hospital for an acute GI bleed. Over night the patient had a maroon-colored stool. He had to maroon-colored stool this morning. The patient was somewhat dizzy and lightheaded. He was hypotensive earlier with a systolic blood pressure of 83. He remains in atrial fibrillation with a rapid ventricular response rate. His oral medications have been held. The patient has had no hematemesis or melena. Patient is pale and feels poorly. Exam Vital Signs (past 8 hours): - 10/29/18 06:00 10/29/18 07:00 10/29/18 08:00 Temperature 98.1 F Pulse Rate 102 H 108 H 118 H Respiratory Rate 12 16 Blood Pressure 92/60 125/67 94/51 L Pulse Oximetry 96 97 98 10/29/18 09:00 10/29/18 09:35 10/29/18 10:00 Temperature Pulse Rate 106 H 98 H 99 H Respiratory Rate 20 12 14 Blood Pressure 83/41 L 100/56 L 104/64 Pulse Oximetry 95 94 95 10/29/18 11:00 10/29/18 12:00 10/29/18 12:23 Temperature 97.4 F L Pulse Rate 119 H 80 Respiratory Rate 13 15 Blood Pressure 104/43 L 97/66 Pulse Oximetry 95 97 Oxygen Delivery Method Room Air Oxygen Flow Rate 0 Narrative Exam Narrative: Ill appearing male lying in bed Lungs: Clear to auscultation Cardiac exam: Irregularly irregular normal S1-S2 with a 2/6 systolic ejection murmur Abdomen: Soft nontender nondistended no appreciable hepatosplenomegaly no rebound tenderness no board-like rigidity Extremities: No edema Objective Labs Result Diagrams: 10/29/18 09:35 10/29/18 04:57 Labs: Laboratory Results - last 24 hr 10/28/18 10/28/18 10/28/18 22:00 22:00 22:00 WBC 7.6 RBC 4.13 L Hgb 13.5 Hct 39.9 L MCV 96.5 MCH 32.7 MCHC 33.9 RDW 12.8 Plt Count 222 Neut % (Auto) 65.0 Lymph % (Auto) 20.2 L [place] % (Auto) 10.2 Eos % (Auto) 3.8 Baso % (Auto) 0.8 Neut # (Auto) 4900 Lymph # (Auto) 1500 [place] # (Auto) 800 Eos # (Auto) 300 Baso # (Auto) 100 PT 13.5 H INR 1.2 APTT 48 H Sodium 128 L Potassium 4.2 Chloride 96 L Carbon Dioxide 23 BUN 12 Creatinine 0.70 Estimated GFR > 60.0 BUN/Creatinine Ratio 17.1 Glucose 127 H Calcium 9.3 Magnesium Total Bilirubin 1.0 AST 54 ALT 46 Alkaline Phosphatase 80 Total Protein 7.0 Albumin 4.2 Globulin 2.8 Albumin/Globulin Ratio 1.5 Nasal Screen MRSA (PCR) Blood Type Antibody Screen 10/28/18 10/29/18 10/29/18 22:00 01:45 01:50 WBC RBC Hgb 11.7 L Hct MCV MCH MCHC RDW Plt Count Neut % (Auto) Lymph % (Auto) [place] % (Auto) Eos % (Auto) Baso % (Auto) Neut # (Auto) Lymph # (Auto) [place] # (Auto) Eos # (Auto) Baso # (Auto) PT INR APTT Sodium Potassium Chloride Carbon Dioxide BUN Creatinine Estimated GFR BUN/Creatinine Ratio Glucose Calcium Magnesium Total Bilirubin AST ALT Alkaline Phosphatase Total Protein Albumin Globulin Albumin/Globulin Ratio Nasal Screen MRSA (PCR) Negative for mrsa Blood Type A Positive Antibody Screen Negative 10/29/18 10/29/18 10/29/18 04:57 04:57 09:35 WBC 5.2 RBC 3.35 L Hgb 10.9 L 10.0 L Hct 32.2 L 28.8 L MCV 96.2 MCH 32.7 MCHC 34.0 RDW 12.7 Plt Count 203 Neut % (Auto) 63.3 Lymph % (Auto) 21.1 L [place] % (Auto) 12.6 Eos % (Auto) 2.3 Baso % (Auto) 0.7 Neut # (Auto) 3300 Lymph # (Auto) 1100 [place] # (Auto) 700 Eos # (Auto) 100 Baso # (Auto) 0 PT INR APTT Sodium 128 L Potassium 4.3 Chloride 97 L Carbon Dioxide 25 BUN 10 Creatinine 0.70 Estimated GFR > 60.0 BUN/Creatinine Ratio 14.3 Glucose 130 H Calcium 8.4 Magnesium 1.5 L Total Bilirubin AST ALT Alkaline Phosphatase Total Protein Albumin Globulin Albumin/Globulin Ratio Nasal Screen MRSA (PCR) Blood Type Antibody Screen 04/10/19 09:35 WBC RBC Hgb Hct MCV MCH MCHC RDW Plt Count Neut % (Auto) Lymph % (Auto) [place] % (Auto) Eos % (Auto) Baso % (Auto) Neut # (Auto) Lymph # (Auto) [place] # (Auto) Eos # (Auto) Baso # (Auto) PT 13.2 H INR 1.1 APTT 37 H D Sodium Potassium Chloride Carbon Dioxide BUN Creatinine Estimated GFR BUN/Creatinine Ratio Glucose Calcium Magnesium Total Bilirubin AST ALT Alkaline Phosphatase Total Protein Albumin Globulin Albumin/Globulin Ratio Nasal Screen MRSA (PCR) Blood Type Antibody Screen Assessment & Plan (1) Acute GI bleeding: Problem details: Patient continues to have bleeding. Suspect this is related to recent polypectomy in the setting of anticoagulation with Lovenox. He has not required transfusion. Will continue hydration and serial hematocrit. General surgeries been consulted and will follow along with us. Present on admission Current visit: Yes Status: Acute (2) Acute blood loss anemia: Problem details: Patient continues to have blood loss. He has not had any need for transfusion at this point. Would transfuse for a hemoglobin of less than 8. At this time is hemoglobin is 10. Will continue serial hematocrits. Present on admission Current visit: Yes Status: Acute (3) Atrial fibrillation with rapid ventricular response: Problem details: The patient was unable to take his usual home medications this morning. As he is not planning to have an urgent endoscopy at this time will resume his usual beta-kourtney dose. Will start IV beta-blockers if needed. Will work closely to control his heart rate. Present on admission Current visit: Yes Status: Acute (4) History of mitral valve repair: Problem details: The patient is chronically anticoagulated for mitral valve repair. He is typically on Coumadin which has been held. His Lovenox is being held as well as his aspirin. Present on admission Current visit: Yes Status: Acute (5) BPH (benign prostatic hyperplasia): Problem details: Chronic Current visit: Yes Status: Acute
[2018-10-29 14:24] LABS: Hemoglobin 9.4 g/dL (13.5-17.5)
--- NOTE | 2018-10-29 16:27 | CM.DANOTE ---
Discharge Planning/Care Management DCP: assessment: initiated: case received and discussed in Team Rounds this morning. Pt is a 73 year old male who admitted to care of the hospitalist team late last night: 23:33. General surgeon Dr. Pollack is consulting. Payer: [facility] Dr. Hickman had initially anticipated a d/c for today but this has now been cancelled. P: check in tomorrow to continue the assessment and assist with d/c issues and options as they are identifified. CM Discharge Assessment Start: 10/29/18 16:24 Freq: Status: Active Protocol: Document 10/29/18 16:25 ITV (Rec: 10/29/18 16:26 ITV [id number]) Discharge Planning Assessment Advance Directives? No History Provided By Medical Record Prior Living Arrangements House Household Members spouse Willing to Return to Facility? Yes Review Status In Process Next Review Type Continued Stay Review
--- NOTE | 2018-10-29 18:17 | PC.NURSE ---
Addendum entered by Gris Toledo R.N. 10/29/18 20:56: 2045 - Pt with scant amount of maroon-colored discharge with flatus. Continues to report intermittent abd cramping, as well as lightheadedness and dizziness with repositioning. Assist to position in bed for comfort, Pt hr increased to 140's with activity, 110's at rest. BP 113/58. Repeat blood draw scheduled for 2200. Monitor. Original Note: 1800 - Assist pt to reposition, continues to reports dizziness and intermittent nausea with repositioning. Small amount of bloody rectal discharge on linen. [place]-care and linen changed. Pt Hr increasing to the 120's with activity. 90-100 at rest. BP 108/64. Continue with bedrest and bedpan use r/t dizziness. Call light in reach. Monitor.
[2018-10-29 22:17] LABS: Hematocrit 25.7 % (41-53); Hemoglobin 8.7 g/dL (13.5-17.5)
[2018-10-30] VITALS (15 sets, daily range): BP systolic 103–150; BP diastolic 49–90; PULSE 69–161; RESP 10–22; TEMP 36.4–37.2; O2SAT 94–98
--- NOTE | 2018-10-30 | DI.RAD.S_ITS ---
PROCEDURE: XR KUB INDICATIONS: abdominal distention TECHNIQUE: One view of the abdomen acquired. COMPARISON: None. FINDINGS: Surgical changes and devices: Median sternotomy wires and prosthetic heart valve are seen. Bowel: Bowel gas pattern is normal. No abnormally distended bowel loops are seen. Soft tissues: No suspicious abdominal calcifications. Visualized solid organ contours appear normal in size. Bones: No suspicious bony lesions. IMPRESSION: No evidence of bowel obstruction no gross free air. Dictated by: Lucio March M.D. on 10/30/2018 at 17:21 Approved by: Lucio March M.D. on 10/30/2018 at 17:22
[2018-10-30] MEDS: SODIUM CHLORIDE 0.9% 1,000 ML 100 ML IV (04:32)
[2018-10-30 05:10] LABS: Add Manual Diff / Slide Review NO; Basophils Absolute Auto 0 /uL (0-100); Basophils Percent Auto 0.5 % (0-2); Eosinophils Absolute Auto 200 /uL (0-450); Eosinophils Percent Auto 2.4 % (2-4); Hemoglobin 8.5 g/dL (13.5-17.5); Lymphocytes Absolute Auto 1200 /uL (1100-4500); Lymphocytes Percent Auto 14.8 % (25-40); Mean Corpuscular Hemoglobin 32.8 PG (26-34); Mean Corpuscular Volume 96.5 fL (80-100); Monocytes Absolute Auto 1200 /uL (0-900); Neutrophils Absolute Auto 5600 /uL (1500-7000); Neutrophils Percent Auto 68.3 % (50-75); Platelet Count 181 X10^3/uL (150-400); Red Blood Cell Count 2.59 X10^6/uL (4.5-5.9); Red Cell Distribution Width 12.7 % (11.6-14.8); White Blood Cell Count 8.2 X10^3/uL (4.5-11.0)
[2018-10-30 05:26] LABS: BUN Creatinine Ratio 17.1 (6-22); Blood Urea Nitrogen 12 mg/dL (9-20); Calcium 7.9 mg/dL (8.4-10.2); Carbon Dioxide 23 mmol/L (22-32); Chloride 103 mmol/L (98-107); Estimated Glomerular Filt Rate > 60.0 mL/min (>60); Glucose 106 mg/dL (80-110); HEMOLYSIS < 15 (0-50); Potassium 4.2 mmol/L (3.4-5.1); Sodium 131 mmol/L (137-145)
[2018-10-30 05:38] LABS: B Type Natriuretic Peptide < 100 (<100)
[2018-10-30] MEDS: MULTIVITAMIN 1 TABLET 1 TAB PO (07:56)
[2018-10-30] MEDS: METOPROLOL IR 50 MG TABLET 100 MG PO (07:56)
[2018-10-30] MEDS: TAMSULOSIN 0.4 MG CAPSULE PO (07:57)
[2018-10-30] MEDS: PANTOPRAZOLE 40 MG VIAL IV (07:57)
--- NOTE | 2018-10-30 08:06 | P.PN_ITS ---
Subjective Date Patient Seen: 10/30/18 Interval history: Patient is a 73 y/o s/p polypectomy who presents for lower GI bleeding. Patient has a MVR previously on coumadin and was bridged with lovenox for his procedure. He developed bleeding the day after his polypectomy. Overnight he has had no further rectal bleeding. He feels less dizzy today, reports feeling hungry, and overall feels significantly improved. Exam Vital Signs (past 8 hours): - 10/30/18 00:06 10/30/18 01:00 10/30/18 02:00 Temperature 98.6 F Pulse Rate 105 H 101 H 106 H Respiratory Rate 14 10 L 16 Blood Pressure 119/65 117/57 L 123/49 L Pulse Oximetry 96 97 96 10/30/18 03:00 10/30/18 04:32 10/30/18 05:00 Temperature 98.0 F Pulse Rate 107 H 125 H 114 H Respiratory Rate 19 16 16 Blood Pressure 119/57 L 103/78 128/57 L Pulse Oximetry 94 95 94 10/30/18 06:00 10/30/18 07:00 Temperature 98.2 F Pulse Rate 115 H 108 H Respiratory Rate 15 16 Blood Pressure 114/64 112/62 Pulse Oximetry 95 98 Oxygen Delivery Method Room Air Oxygen Flow Rate 0 Narrative Exam Narrative: Pleasant male in No acute distress Lungs: Clear to auscultation CV: irregularly, irregular nl Sl S2 2/6 CRISTIANO ABd: mildly distended, non tender, no rigidity Ext: no edema Objective Labs Result Diagrams: 10/30/18 04:54 10/30/18 04:54 Labs: Laboratory Results - last 24 hr 10/29/18 10/29/18 10/29/18 09:35 09:35 14:14 WBC RBC Hgb 10.0 L 9.4 L Hct 28.8 L MCV MCH MCHC RDW Plt Count Neut % (Auto) Lymph % (Auto) [place] % (Auto) Eos % (Auto) Baso % (Auto) Neut # (Auto) Lymph # (Auto) [place] # (Auto) Eos # (Auto) Baso # (Auto) PT 13.2 H INR 1.1 APTT 37 H D Sodium Potassium Chloride Carbon Dioxide BUN Creatinine Estimated GFR BUN/Creatinine Ratio Glucose Calcium B-Natriuretic Peptide 10/29/18 10/30/18 10/30/18 22:04 04:54 04:54 WBC 8.2 D RBC 2.59 L Hgb 8.7 L 8.5 L Hct 25.7 L 25.0 L MCV 96.5 MCH 32.8 MCHC 34.0 RDW 12.7 Plt Count 181 Neut % (Auto) 68.3 Lymph % (Auto) 14.8 L [place] % (Auto) 14.0 Eos % (Auto) 2.4 Baso % (Auto) 0.5 Neut # (Auto) 5600 Lymph # (Auto) 1200 [place] # (Auto) 1200 H Eos # (Auto) 200 Baso # (Auto) 0 PT INR APTT Sodium 131 L Potassium 4.2 Chloride 103 Carbon Dioxide 23 BUN 12 Creatinine 0.70 Estimated GFR > 60.0 BUN/Creatinine Ratio 17.1 Glucose 106 Calcium 7.9 L B-Natriuretic Peptide < 100 Assessment & Plan (1) Acute blood loss anemia: Problem details: Patient presented with Acute blood loss anemia, present on admission. His Hemoglobin/Hematocrit is still trending down but he has not required transfusion yet. No futher bleeding at this point. Will recheck H/H if hemoglobin less than 8 grams will transfuse 1 unit. Current visit: Yes Status: Acute (2) Acute GI bleeding: Problem details: No further bleeding since yesterday. Will recheck H/H. Need to resume Lovenox with coumadin bridge given Mitral Valve Replacement Current visit: Yes Status: Acute (3) Atrial fibrillation with rapid ventricular response: Problem details: The patient was unable to take his usual home medications this morning. As he is not planning to have an urgent endoscopy at this time will resume his usual beta-kourtney dose. Will start IV beta-blockers if needed. Will work closely to control his heart rate. Resume digoxin and continue metoprolol 100 mg every morning Present on admission Current visit: Yes Status: Acute (4) History of mitral valve repair: Problem details: The patient is chronically anticoagulated for mitral valve repair. He is typically on Coumadin which has been held. His Lovenox is being held as well as his aspirin. Present on admission Will resume lovenox today if no longer bleeding and H/H stabilizes Current visit: Yes Status: Acute (5) BPH (benign prostatic hyperplasia): Problem details: Chronic Current visit: Yes Status: Acute (6) Hyponatremia: Problem details: Noted, will discontinue IV hydration today and follow closely Current visit: Yes Status: Acute (7) Hypertension: Problem details: Chronic, patient currently is normotensive. Will hold losartan for now. Will resume once blood pressure improves. Current visit: Yes Status: Acute Assessment & Plan narrative: Need to confirm no bleeding when starting lovenox. Will advance diet. Continue metoprolol. Home 1-2 days
[2018-10-30 08:57] LABS: Hematocrit 25.3 % (41-53); Hemoglobin 8.8 g/dL (13.5-17.5); Mean Corpuscular HGB Conc 34.7 % (30-36); Mean Corpuscular Hemoglobin 33.6 PG (26-34); Mean Corpuscular Volume 96.6 fL (80-100); Platelet Count 184 X10^3/uL (150-400); Red Blood Cell Count 2.62 X10^6/uL (4.5-5.9); White Blood Cell Count 8.3 X10^3/uL (4.5-11.0)
[2018-10-30 10:28] LABS: HEMOLYSIS < 15 (0-50); Iron 42 ug/dL (49-181)
[2018-10-30 10:40] LABS: Percent Iron Saturation 15 % (20-50); Total Iron Binding Capacity 273 ug/dL (261-462); Transferrin 185 mg/dL (206-381)
[2018-10-30 12:27] LABS: Add Manual Diff / Slide Review NO; Basophils Absolute Auto 100 /uL (0-100); Basophils Percent Auto 0.7 % (0-2); Eosinophils Absolute Auto 200 /uL (0-450); Eosinophils Percent Auto 2.9 % (2-4); Hemoglobin 8.2 g/dL (13.5-17.5); Lymphocytes Absolute Auto 1200 /uL (1100-4500); Lymphocytes Percent Auto 14.9 % (25-40); Mean Corpuscular HGB Conc 34.5 % (30-36); Mean Corpuscular Hemoglobin 33.4 PG (26-34); Mean Corpuscular Volume 96.6 fL (80-100); Monocytes Absolute Auto 1000 /uL (0-900); Monocytes Percent Auto 13.2 % (3-14); Neutrophils Absolute Auto 5400 /uL (1500-7000); Neutrophils Percent Auto 68.3 % (50-75); Platelet Count 176 X10^3/uL (150-400); Red Blood Cell Count 2.46 X10^6/uL (4.5-5.9); Red Cell Distribution Width 13.1 % (11.6-14.8); White Blood Cell Count 7.9 X10^3/uL (4.5-11.0)
[2018-10-30 12:33] LABS: Hematocrit 23.8 % (41-53)
[2018-10-30] MEDS: DIGOXIN 0.25 MG TABLET PO (16:59)
[2018-10-30] MEDS: METOPROLOL IR 50 MG TABLET PO (17:27)
--- NOTE | 2018-10-30 19:17 | PC.NURSE ---
1899- Patient had an eleven beat run of V-tach. Patient was asymtomatic. Dr. Hickman notified order recieved.
[2018-10-30] MEDS: MAGNESIUM SULFATE 2 GM/50 ML PIGGYBACK IV (19:31)
--- NOTE | 2018-10-30 21:07 | PC.NURSE ---
2000- Physical assessment reviewed and I agree with charting.
[2018-10-31] VITALS (20 sets, daily range): BP systolic 103–157; BP diastolic 56–79; PULSE 82–116; RESP 16–22; TEMP 37.1–37.8; O2SAT 95–99
--- NOTE | 2018-10-31 04:31 | PC.NURSE ---
Will ask for H2O [as in you hold the cup] as he doesn't want to move as it makes my HR go up, told he needs to move while he is in the hospital so we can see the trends and treat them. HR started increasing to 110's to 130's about 0330, otherwise would hold in 90's to low 100's until then. Pt c/o of back pain from being in bed, explained he needed to get up and move. When I do that the room spins, I explained he needed to sit up slowly and then stand slowly as the medication he had been on and was on now would help control his BP and HR. Lays only on his back, flat, turns only with much encouragement and urging.
[2018-10-31 05:21] LABS: Add Manual Diff / Slide Review NO; Basophils Absolute Auto 100 /uL (0-100); Basophils Percent Auto 0.7 % (0-2); Eosinophils Absolute Auto 400 /uL (0-450); Hematocrit 23.6 % (41-53); Hemoglobin 8.1 g/dL (13.5-17.5); Lymphocytes Absolute Auto 1100 /uL (1100-4500); Lymphocytes Percent Auto 14.2 % (25-40); Mean Corpuscular HGB Conc 34.2 % (30-36); Mean Corpuscular Volume 96.7 fL (80-100); Monocytes Absolute Auto 1000 /uL (0-900); Monocytes Percent Auto 13.5 % (3-14); Neutrophils Absolute Auto 4900 /uL (1500-7000); Neutrophils Percent Auto 66.6 % (50-75); Platelet Count 192 X10^3/uL (150-400); Red Blood Cell Count 2.44 X10^6/uL (4.5-5.9); Red Cell Distribution Width 13.1 % (11.6-14.8); White Blood Cell Count 7.4 X10^3/uL (4.5-11.0)
[2018-10-31 05:28] LABS: BUN Creatinine Ratio 11.7 (6-22); Blood Urea Nitrogen 7 mg/dL (9-20); Calcium 8.1 mg/dL (8.4-10.2); Carbon Dioxide 27 mmol/L (22-32); Chloride 97 mmol/L (98-107); Estimated Glomerular Filt Rate > 60.0 mL/min (>60); Glucose 113 mg/dL (80-110); HEMOLYSIS < 15 (0-50); Potassium 3.7 mmol/L (3.4-5.1); Sodium 128 mmol/L (137-145)
[2018-10-31] MEDS: METOPROLOL IR 50 MG TABLET 100 MG PO (06:07)
--- NOTE | 2018-10-31 09:23 | PM.PN.1 ---
Subjective Date Patient Seen: 10/31/18 Time Patient Seen: 09:23 Interval history: The patient feels somewhat bloated today and have been some crampy abdominal pain. no nausea vomiting he is passing flatus his had no bowel movement for 24 hours. No evidence of any further bleeding. Exam Vital Signs (past 8 hours): - 10/31/18 03:00 10/31/18 06:20 10/31/18 08:29 Temperature 99.0 F 98.7 F Pulse Rate 112 H 116 H 101 H Pulse Rate [Orthostatic Lying] Pulse Rate [Orthostatic Sitting] Pulse Rate [Orthostatic Standing] Respiratory Rate 16 22 Blood Pressure 157/71 H 136/73 137/75 Blood Pressure [Orthostatic Lying] Blood Pressure [Orthostatic Sitting] Pulse Oximetry 97 95 10/31/18 08:33 Temperature Pulse Rate Pulse Rate [Orthostatic Lying] 101 H Pulse Rate [Orthostatic Sitting] 96 H Pulse Rate [Orthostatic Standing] 116 H Respiratory Rate Blood Pressure Blood Pressure [Orthostatic Lying] 137/77 Blood Pressure [Orthostatic Sitting] 144/79 H Pulse Oximetry Oxygen Delivery Method Room Air Oxygen Flow Rate 0 Narrative Exam Narrative: Patient is afebrile heart rate in the low 90s blood pressure 110/76 abdomen is a bit distended. There is some mild tenderness diffusely. Objective Labs Result Diagrams: 10/31/18 04:50 10/31/18 04:50 Labs: Laboratory Results - last 24 hr 10/30/18 10/30/18 10/31/18 08:45 12:10 04:50 WBC 7.9 7.4 RBC 2.46 L 2.44 L Hgb 8.2 L 8.1 L Hct 23.8 L 23.6 L MCV 96.6 96.7 MCH 33.4 33.0 MCHC 34.5 34.2 RDW 13.1 13.1 Plt Count 176 192 Neut % (Auto) 68.3 66.6 Lymph % (Auto) 14.9 L 14.2 L [place] % (Auto) 13.2 13.5 Eos % (Auto) 2.9 5.0 H Baso % (Auto) 0.7 0.7 Neut # (Auto) 5400 4900 Lymph # (Auto) 1200 1100 [place] # (Auto) 1000 H 1000 H Eos # (Auto) 200 400 Baso # (Auto) 100 100 Sodium Potassium Chloride Carbon Dioxide BUN Creatinine Estimated GFR BUN/Creatinine Ratio Glucose Calcium Iron 42 L TIBC 273 % Saturation 15 L Transferrin 185 L 10/31/18 04:50 WBC RBC Hgb Hct MCV MCH MCHC RDW Plt Count Neut % (Auto) Lymph % (Auto) [place] % (Auto) Eos % (Auto) Baso % (Auto) Neut # (Auto) Lymph # (Auto) [place] # (Auto) Eos # (Auto) Baso # (Auto) Sodium 128 L Potassium 3.7 Chloride 97 L Carbon Dioxide 27 BUN 7 L Creatinine 0.60 L Estimated GFR > 60.0 BUN/Creatinine Ratio 11.7 Glucose 113 H Calcium 8.1 L Iron TIBC % Saturation Transferrin Assessment & Plan Assessment & Plan narrative: Hemoglobin is 8.2 this morning the patient has not received any blood transfusions for this episode of GI bleeding. hemoglobin has been above 8 for the last 24-36 hours. He is not passing any more bloody stools. It would appear that the bleeding has stopped. Plan is to slowly advance his diet. I started a full liquid diet this morning. Patient is nauseated so I have checked a digoxin level today. Nausea could simply be due to the gaseous distention of his abdomen I also prescribed Zofran and Protonix. The hospitalists will gradually restart his Coumadin therapy for his mitral valve prophylaxis. The patient could probably be transferred out of intensive care.
[2018-10-31] MEDS: SIMETHICONE 80 MG TABLET PO (09:40)
[2018-10-31] MEDS: TAMSULOSIN 0.4 MG CAPSULE PO (09:40)
[2018-10-31] MEDS: PANTOPRAZOLE 20 MG TABLET PO ×2 (09:40→21:08)
[2018-10-31] MEDS: MULTIVITAMIN 1 TABLET 1 TAB PO (09:40)
[2018-10-31] MEDS: ONDANSETRON 4 MG/2 ML INJ IV (09:40)
[2018-10-31] MEDS: BISACODYL 10 MG SUPP PR (11:01)
--- NOTE | 2018-10-31 11:19 | P.PN_ITS ---
Subjective Date Patient Seen: 10/31/18 Interval history: The patient is a 73-year-old male who is status post colon oscopy with polypectomy who presented to the hospital with rectal bleeding. Was felt that the bleeding was from the polypectomy site. The patient has significant blood from below. However despite this he did not require transfusion. Today he complains of abdominal distension, nausea, and overall malaise. He has been ambulating. He just received a rectal suppository. The patient does have a history of mitral valve replacement. He has been off anticoagulation given his GI bleed for the past 2 days. He will be restarted on anticoagulation today. His heart rate has improved back on his metoprolol. He is no longer hypotensive. Exam Vital Signs (past 8 hours): - 10/31/18 06:20 10/31/18 08:29 10/31/18 08:33 Temperature 98.7 F Pulse Rate 116 H 101 H Pulse Rate [Orthostatic Lying] 101 H Pulse Rate [Orthostatic Sitting] 96 H Pulse Rate [Orthostatic Standing] 116 H Respiratory Rate 22 Blood Pressure 136/73 137/75 Blood Pressure [Orthostatic Lying] 137/77 Blood Pressure [Orthostatic Sitting] 144/79 H Pulse Oximetry 95 Oxygen Delivery Method Room Air Oxygen Flow Rate 0 Narrative Exam Narrative: Pleasant male uncomfortable from abdominal distention Lungs: Clear to auscultation Cardiac exam: Irregularly irregular, normal S1-S2, 3/6 systolic ejection Abdomen: Distended, soft, nontender, no rebound tenderness Extremities: Trace edema Objective Labs Result Diagrams: 10/31/18 04:50 10/31/18 04:50 Labs: Laboratory Results - last 24 hr 10/30/18 10/31/18 10/31/18 12:10 04:50 04:50 WBC 7.9 7.4 RBC 2.46 L 2.44 L Hgb 8.2 L 8.1 L Hct 23.8 L 23.6 L MCV 96.6 96.7 MCH 33.4 33.0 MCHC 34.5 34.2 RDW 13.1 13.1 Plt Count 176 192 Neut % (Auto) 68.3 66.6 Lymph % (Auto) 14.9 L 14.2 L [place] % (Auto) 13.2 13.5 Eos % (Auto) 2.9 5.0 H Baso % (Auto) 0.7 0.7 Neut # (Auto) 5400 4900 Lymph # (Auto) 1200 1100 [place] # (Auto) 1000 H 1000 H Eos # (Auto) 200 400 Baso # (Auto) 100 100 Sodium 128 L Potassium 3.7 Chloride 97 L Carbon Dioxide 27 BUN 7 L Creatinine 0.60 L Estimated GFR > 60.0 BUN/Creatinine Ratio 11.7 Glucose 113 H Calcium 8.1 L Digoxin 10/31/18 04:50 WBC RBC Hgb Hct MCV MCH MCHC RDW Plt Count Neut % (Auto) Lymph % (Auto) [place] % (Auto) Eos % (Auto) Baso % (Auto) Neut # (Auto) Lymph # (Auto) [place] # (Auto) Eos # (Auto) Baso # (Auto) Sodium Potassium Chloride Carbon Dioxide BUN Creatinine Estimated GFR BUN/Creatinine Ratio Glucose Calcium Digoxin 1.0 Assessment & Plan (1) Acute blood loss anemia: Problem details: Patient presented with Acute blood loss anemia, present on admission. His Hemoglobin/Hematocrit is still trending down but he has not required transfusion yet. No futher bleeding at this point. Will recheck H/H if hemoglobin less than 8 grams will transfuse 1 unit. No need for transfusion at this point. Patient does have iron deficiency and will start IV iron at this time. Current visit: Yes Status: Acute (2) Acute GI bleeding: Problem details: No further bleeding since yesterday. Will recheck H/H. Need to resume Lovenox with coumadin bridge given Mitral Valve Replacement Will resume Lovenox and Coumadin tonight. Current visit: Yes Status: Acute (3) Atrial fibrillation with rapid ventricular response: Problem details: The patient was unable to take his usual home medications this morning. As he is not planning to have an urgent endoscopy at this time will resume his usual beta-kourtney dose. Will start IV beta-blockers if needed. Will work closely to control his heart rate. Resume digoxin and continue metoprolol 100 mg every morning Present on admission. Improved Current visit: Yes Status: Acute (4) History of mitral valve repair: Problem details: The patient is chronically anticoagulated for mitral valve repair. He is typically on Coumadin which has been held. His Lovenox is being held as well as his aspirin. Present on admission Will resume lovenox today if no longer bleeding and H/H stabilizes. Resume anticoagulation today Current visit: Yes Status: Acute (5) Hyponatremia: Problem details: Noted, will discontinue IV hydration today and follow closely Patient will be placed on a 1200 cc fluid restriction. Will recheck his sodium tomorrow. Current visit: Yes Status: Acute (6) Hypertension: Problem details: Chronic, patient currently is normotensive. Will hold losartan for now. Will resume once blood pressure improves. Blood pressure increased today. Will resume his losartan which is his usual medication. Current visit: Yes Status: Acute (7) BPH (benign prostatic hyperplasia): Problem details: Chronic Current visit: Yes Status: Acute Assessment & Plan narrative: Anticipate discharge home tomorrow.
[2018-10-31] MEDS: ENOXAPARIN 100 MG/ML SYRINGE SUBCUT (11:45)
[2018-10-31] MEDS: LOSARTAN 50 MG TABLET 100 MG PO (11:45)
--- NOTE | 2018-10-31 12:27 | PC.NURSE ---
pt ambulated x1 in ICU [place]. up in chair x2hrs. reported nausea, slight light-headedness. ducolax suppository given and pt states I feel so much better since passing a lot of gas. pt resting at this time.
--- NOTE | 2018-10-31 12:41 | PC.NURSE ---
Addendum entered by Tip Casillas R.N. 10/31/18 14:03: 1320- Pt up to [facility]. Reports dizziness. BP 116/66 (85) HR 99. This is a drop from previous BP 147/71 (99). Pt passed flatus and reports having BM. On assessment, noted 150 ML of maroon, liquid blood. Assisted pt back to bed. Rechecked BP 136/67 (99) HR 88. Pt reports improvement in dizziness. Reports only lightheadedness at this time. Placed call light in easy reach and instructed to call for worsening dizziness or concerns. Family at bedside. Called to Dr. Hickman. Reported VS, pt c/o dizziness, 150 ML liquid maroon bloody stool. Requested clarification for anticoagulants and full liquid diet. Orders received to dc coumadin and lovenox as well as stat H/H. Dr. Hickman instructs to call Dr. Lehman for diet order clarification. Called to Dr. Lehman and reported assessment findings. TORB for NPO and Bed Rest. Dr. Lehman requests call back with results of H/H. Pt able to void 100 ML per urinal. Bladder scan reveals 35-60 ML PVR. Will monitor. Original Note: Rec'd pt in bed sleeping. Entered room to introduce self. Pt awakens to light verbal stimuli. Declines lunch tray stating he would like to eat later. Would like to wait on venofer infusion until after rest period. Call light in easy reach. Will monitor.
[2018-10-31] MEDS: IRON SUCROSE 200 MG in SODIUM CHLORIDE 0.9% 100 ML 220 ML IV (13:19)
[2018-10-31 14:49] LABS: Hemoglobin 8.6 g/dL (13.5-17.5)
--- NOTE | 2018-10-31 15:07 | PM.PN.1 ---
Subjective Date Patient Seen: 10/31/18 Time Patient Seen: 15:07 Interval history: PATIENT IS IN THE INTENSIVE CARE UNIT AND HAS BEEN HERE FOR 4 DAYS. WE HAVE BEEN OBSERVING HIS COLONIC BLEEDING. FOR THE PAST 24-36 HOURS PATIENT HAS HAD NO BLEEDING UNTIL THIS AFTERNOON. THE HOSPITALIST AND I DISCUSSED RESTARTING HIS ANTICOAGULATION THERAPY FOR PROPHYLAXIS FOR HIS MITRAL VALVE. AND WE BOTH AGREED AND THIS MORNING THE PATIENT RECEIVED LOVENOX 100 MG. COUMADIN WAS ORDERED BUT NOT GIVEN YET. PATIENT THIS AFTERNOON HAD A MODERATELY LARGE BLOODY STOOL AND SUBSEQUENT TO THAT ANOTHER SMALL BLOODY STOOL. BLOOD PRESSURE DROPPED SLIGHTLY WITH HIS BLEEDING EPISODE. CURRENTLY HAS NORMALIZED TO 130/70. OBVIOUSLY THIS PATIENT IS NOT READY TO BE ANTICOAGULATED AGAIN. FURTHERMORE I HAVE ORDERED REVERSAL OF THE LOVENOX WITH FRESH FROZEN PLASMA. Exam Vital Signs (past 8 hours): - 10/31/18 08:29 10/31/18 08:33 10/31/18 11:53 Temperature 98.7 F Pulse Rate 101 H 83 Pulse Rate [Orthostatic Lying] 101 H Pulse Rate [Orthostatic Sitting] 96 H Pulse Rate [Orthostatic Standing] 116 H Respiratory Rate 22 18 Blood Pressure 137/75 148/72 H Blood Pressure [Orthostatic Lying] 137/77 Blood Pressure [Orthostatic Sitting] 144/79 H Pulse Oximetry 95 95 10/31/18 13:20 10/31/18 13:40 Temperature Pulse Rate 99 H 88 Pulse Rate [Orthostatic Lying] Pulse Rate [Orthostatic Sitting] Pulse Rate [Orthostatic Standing] Respiratory Rate 19 17 Blood Pressure 116/66 136/67 Blood Pressure [Orthostatic Lying] Blood Pressure [Orthostatic Sitting] Pulse Oximetry 97 97 Oxygen Delivery Method Room Air Oxygen Flow Rate 0 Narrative Exam Narrative: PATIENT IS ALERT. ABDOMINAL EXAM REVEALS LESS DISTENTION THAN THIS MORNING. ONLY A SLIGHT AMOUNT OF ABDOMINAL TENDERNESS IS PRESENT IN ALL QUADRANTS. Objective Labs Result Diagrams: 10/31/18 14:22 10/31/18 04:50 Labs: Laboratory Results - last 24 hr 10/31/18 10/31/18 10/31/18 04:50 04:50 04:50 WBC 7.4 RBC 2.44 L Hgb 8.1 L Hct 23.6 L MCV 96.7 MCH 33.0 MCHC 34.2 RDW 13.1 Plt Count 192 Neut % (Auto) 66.6 Lymph % (Auto) 14.2 L [place] % (Auto) 13.5 Eos % (Auto) 5.0 H Baso % (Auto) 0.7 Neut # (Auto) 4900 Lymph # (Auto) 1100 [place] # (Auto) 1000 H Eos # (Auto) 400 Baso # (Auto) 100 Sodium 128 L Potassium 3.7 Chloride 97 L Carbon Dioxide 27 BUN 7 L Creatinine 0.60 L Estimated GFR > 60.0 BUN/Creatinine Ratio 11.7 Glucose 113 H Calcium 8.1 L Digoxin 1.0 10/31/18 14:22 WBC RBC Hgb 8.6 L Hct 25.0 L MCV MCH MCHC RDW Plt Count Neut % (Auto) Lymph % (Auto) [place] % (Auto) Eos % (Auto) Baso % (Auto) Neut # (Auto) Lymph # (Auto) [place] # (Auto) Eos # (Auto) Baso # (Auto) Sodium Potassium Chloride Carbon Dioxide BUN Creatinine Estimated GFR BUN/Creatinine Ratio Glucose Calcium Digoxin Assessment & Plan Assessment & Plan narrative: THE PATIENT IS HEMODYNAMICALLY STABLE BUT OBVIOUSLY BLED AGAIN AFTER RECEIVING A DOSE OF LOVENOX. THEREFORE I A HAVE STOPPED THE LOVENOX AND COUMADIN THERAPY. FURTHERMORE I HAVE ORDERED 2 UNITS OF FRESH FROZEN PLASMA TO ATTEMPT TO COMPLETELY REVERSE ANY ANTICOAGULATION AT THIS TIME. PATIENT AND HIS UNDERSTAND THE DILEMMA HERE. THEY KNOW THAT WE WOULD LIKE TO RESUME ANTICOAGULATION FOR PROTECTION OF HIS MITRAL VALVE BUT AT THE SAME TIME WE CANNOT CONTINUE TO ALLOW COLONIC BLEEDING. HEMOGLOBIN THIS AFTERNOON ESSENTIALLY THE SAME IT WAS THIS MORNING. AT THIS POINT RED CELL TRANSFUSION IS NOT INDICATED. WE WILL FOLLOW HIS HEMOGLOBINS.
--- NOTE | 2018-10-31 15:48 | CM.DPC ---
DCP: continued: case discussed in Team Rounds this morning. dr. Hickman noted that pt seemed to be doing well and she expected he would be ready for d/c home tomorrow. Had planned to go to ICU to check in on pt this afternoon. EMR show that pt had an episode of liquid maroon stool with dizziness about an hour ago, Dr. Hickman and surgeon Dr. Pollack are conferring, anticoagulants have been stopped....POC remains in process. Pt will benefit for a check in by the DCPlanner on tomorrow. Team will continue to follow for d/c needs as these unfold. ? of home health at d/c IF pt is homebound...
--- NOTE | 2018-10-31 16:31 | PC.NURSE ---
1600- First unit of FFP up and running patient tolerating well.
[2018-10-31] MEDS: DIGOXIN 0.25 MG TABLET PO (16:52)
[2018-10-31] MEDS: METOPROLOL IR 50 MG TABLET PO (16:53)
[2018-10-31] MEDS: SODIUM CHLORIDE 0.9% FLUSH 10 ML IV (21:08)
[2018-10-31 22:15] LABS: Hematocrit 21.3 % (41-53); Hemoglobin 7.5 g/dL (13.5-17.5)
--- NOTE | 2018-10-31 22:43 | PC.NURSE ---
2230- Patient 2200 H/H result called to Dr. Pollack. Order recieved for 2 units PRBC. Repeat labs at 0500.
--- NOTE | 2018-10-31 22:47 | PM.EVENT ---
Date Patient Seen: 10/31/18 Time Patient Seen: 22:48 Received a call from digna TIMMONS with notification of patient's hemoglobin being 7.5 on 10/31/2018 at 10:05 PM. It appears that the nurse has also spoken to the surgeon, Dr. Lehman, in regard to hemoglobin. This is a drop from 8.6 g/dL at 2:22 PM. RN communicated that the surgeon ordered 2 units of PRBCs to be transfused. Acknowledged hemoglobin of 7.5, patient's records reviewed. Patient originally admitted with the suspected acute GIB in lieu of recent polypectomy. Patient is known to have underlying history of valvular heart disease and was anticoagulated. His anticoagulation will has been held and has had no further bleeding episodes until this morning with an attempt to restart anticoagulation. This morning has had what is documented as 1 large and 1 small episode of blood loss per rectum He has received 2 units of FFP earlier in the day. No further episodes of blood loss thereafter. - drop in hemoglobin from 8.6 to 7.5 over an 8 hour period, currently no active bleeding - most recent VS from 20:12, VS BP 103/56 HR 85 RR 20 T 99.7 - recommended transfusion of 1 unit, then to recheck H&H, if Hgb is less than 8 than to proceed with transfusion of 2nd unit Degree of reluctance from patient's nurse to the aforementioned recommendations. Encouraged a follow-up with the surgeon. Transfusion of the 2nd unit with a Hgb level greater than 8 and absence of hemodynamic instability will be at surgeons discretion. Patient also seen at bedside Alert oriented x3 Reports slight lightheadedness, which he has had not significantly worse Denies chest pain, palpitations, abdominal pain, and nausea S1-S2, AFIB on the monitor w/ CVR CTAB, on RA, no dyspnea or tachypnea at rest Abdomen NT, ND, BS present No peripheral edema This is change of shift for the nurses. On coming nurse is asking about the plan of care. Recommended transfusion 1u PRBCs, then to recheck Hgb. If less than 8 and hold off on transfusion of 2nd unit. Also noted, that may potentially need to transfuse 2nd unit if patient starts having additional, significant, rectal blood loss or is hemodynamically unstable. Once again communicated, if there is degree of reluctance, then to also discuss with Dr. Lehman. Encouraged close patient monitoring.
[2018-10-31] MEDS: ACETAMINOPHEN 325 MG TABLET 650 MG PO (23:47)
[2018-11-01] VITALS (16 sets, daily range): BP systolic 111–157; BP diastolic 56–88; PULSE 68–101; RESP 16–20; TEMP 36.5–37.3; O2SAT 95–98
[2018-11-01 03:41] LABS: Add Manual Diff / Slide Review NO; Basophils Absolute Auto 0 /uL (0-100); Basophils Percent Auto 0.6 % (0-2); Eosinophils Absolute Auto 200 /uL (0-450); Eosinophils Percent Auto 3.3 % (2-4); Hemoglobin 8.1 g/dL (13.5-17.5); Lymphocytes Absolute Auto 1500 /uL (1100-4500); Lymphocytes Percent Auto 21.8 % (25-40); Mean Corpuscular Hemoglobin 32.7 PG (26-34); Mean Corpuscular Volume 93.5 fL (80-100); Monocytes Absolute Auto 1000 /uL (0-900); Monocytes Percent Auto 14.2 % (3-14); Neutrophils Absolute Auto 4200 /uL (1500-7000); Neutrophils Percent Auto 60.1 % (50-75); Platelet Count 198 X10^3/uL (150-400); Red Blood Cell Count 2.48 X10^6/uL (4.5-5.9); Red Cell Distribution Width 13.9 % (11.6-14.8)
[2018-11-01 03:43] LABS: Hematocrit 23.2 % (41-53)
[2018-11-01 03:54] LABS: BUN Creatinine Ratio 11.7 (6-22); Blood Urea Nitrogen 7 mg/dL (9-20); Calcium 8.5 mg/dL (8.4-10.2); Carbon Dioxide 27 mmol/L (22-32); Chloride 96 mmol/L (98-107); Estimated Glomerular Filt Rate > 60.0 mL/min (>60); Glucose 106 mg/dL (80-110); HEMOLYSIS < 15 (0-50); Potassium 3.4 mmol/L (3.4-5.1); Sodium 129 mmol/L (137-145)
[2018-11-01 04:04] LABS: INR 1.2 (0.9-1.3); Prothrombin Time 14.1 SECONDS (10.1-12.7)
[2018-11-01] MEDS: METOPROLOL IR 50 MG TABLET 100 MG PO (06:30)
[2018-11-01] MEDS: PANTOPRAZOLE 20 MG TABLET PO ×2 (06:30→19:33)
--- NOTE | 2018-11-01 06:53 | PC.NURSE ---
Patient tolerated 1 unit PRBC, two small bloody stools prior to transfusion. VSS. Tylenol given for back pain and generalized aches prior to transfusion-effective. NPO except meds. Voided 300ml tea colored urine.
--- NOTE | 2018-11-01 10:38 | P.PN_ITS ---
Subjective Date Patient Seen: 11/01/18 Time Patient Seen: 10:35 Interval history: Patient had several bloody stools yesterday however has had none for almost 24 hours. Hemoglobin had dropped to 7.5 he received 1 unit of packed cells and his hemoglobin this morning 8.1. Patient feels much better after the 1st unit of blood was transfused. Patient denies abdominal pain. is passing flatus with no blood. Exam Vital Signs (past 8 hours): - 11/01/18 02:44 11/01/18 05:00 11/01/18 08:09 Temperature 98.8 F 99.2 F Pulse Rate 90 95 H Respiratory Rate 18 16 Blood Pressure 137/56 L 133/88 Pulse Oximetry 97 95 11/01/18 09:00 Temperature Pulse Rate 72 Respiratory Rate 18 Blood Pressure Pulse Oximetry 95 Oxygen Delivery Method Room Air Oxygen Flow Rate 0 Narrative Exam Narrative: Patient is alert and oriented. Vital signs are stable. Abdomen is soft less distended less tender. Objective Labs Result Diagrams: 11/01/18 03:30 11/01/18 03:30 Labs: Laboratory Results - last 24 hr 10/28/18 10/31/18 10/31/18 22:00 14:22 22:05 WBC RBC Hgb 8.6 L 7.5 L Hct 25.0 L 21.3 L MCV MCH MCHC RDW Plt Count Neut % (Auto) Lymph % (Auto) [place] % (Auto) Eos % (Auto) Baso % (Auto) Neut # (Auto) Lymph # (Auto) [place] # (Auto) Eos # (Auto) Baso # (Auto) PT INR Sodium Potassium Chloride Carbon Dioxide BUN Creatinine Estimated GFR BUN/Creatinine Ratio Glucose Calcium Blood Type A Positive Antibody Screen Negative Crossmatch See Detail 11/01/18 11/01/18 11/01/18 03:30 03:30 03:30 WBC 7.0 RBC 2.48 L Hgb 8.1 L Hct 23.2 L MCV 93.5 D MCH 32.7 MCHC 35.0 RDW 13.9 Plt Count 198 Neut % (Auto) 60.1 Lymph % (Auto) 21.8 L [place] % (Auto) 14.2 H Eos % (Auto) 3.3 Baso % (Auto) 0.6 Neut # (Auto) 4200 Lymph # (Auto) 1500 [place] # (Auto) 1000 H Eos # (Auto) 200 Baso # (Auto) 0 PT 14.1 H INR 1.2 Sodium 129 L Potassium 3.4 Chloride 96 L Carbon Dioxide 27 BUN 7 L Creatinine 0.60 L Estimated GFR > 60.0 BUN/Creatinine Ratio 11.7 Glucose 106 Calcium 8.5 Blood Type Antibody Screen Crossmatch Assessment & Plan Assessment & Plan narrative: Patient seems to have stopped bleeding after I reversed his Lovenox with fresh frozen plasma. Unfortunately I do not think it is safe to resume his anticoagulation therapy at this time. His mitral valve has been in for 9 years and as such is less likely to be involved with thrombosis. Understandably we need to restart his Coumadin but not until were ensured that he is will not have further GI bleeding. patient feels stronger after 1 unit of blood is hemoglobin is 8.1 he will receive his 2nd unit of blood this morning I will resume his full liquid diet. I would think it would be prudent to simply start Coumadin slowly in another day or so and not use heparin. A slow start Coumadin regimen will only gradually increase his INR. Patient understands this and has no further questions.
[2018-11-01] MEDS: MULTIVITAMIN 1 TABLET 1 TAB PO (10:41)
[2018-11-01] MEDS: TAMSULOSIN 0.4 MG CAPSULE PO (10:41)
[2018-11-01] MEDS: SODIUM CHLORIDE 0.9% FLUSH 10 ML IV ×2 (10:41→19:33)
[2018-11-01] MEDS: ACETAMINOPHEN 325 MG TABLET 650 MG PO (10:43)
--- NOTE | 2018-11-01 11:41 | P.PN_ITS ---
Subjective Date Patient Seen: 11/01/18 Interval history: Mr. Reeves had some bleeding yesterday after starting Lovenox. The Lovenox was then discontinued. He had 2 small smears of stool that were bloody overnight. He is now receiving his 2nd unit of blood. He is continuing to pass gas. He has minimal abdominal distention. He is anxious to get up and ambulate and have a shower today. He denies any shortness of breath or chest pain. he has minimal crampy abdominal pain. Exam Vital Signs (past 8 hours): - 11/01/18 05:00 11/01/18 08:09 11/01/18 09:00 Temperature 99.2 F Pulse Rate 95 H 72 Respiratory Rate 16 18 Blood Pressure 133/88 Pulse Oximetry 97 95 95 11/01/18 10:37 11/01/18 10:50 Temperature 98.8 F 97.7 F Pulse Rate 68 72 Respiratory Rate 16 18 Blood Pressure 116/78 150/68 H Pulse Oximetry Oxygen Delivery Method Room Air Oxygen Flow Rate 0 Narrative Exam Narrative: Pleasant male in no obvious distress Lungs: Clear to auscultation Cardiac exam: Irregularly irregular normal S1-S2 with a 3/6 systolic ejection murmur Abdomen: Distended, hyperactive bowel tones, no rebound tenderness. Extremities: No edema Objective Labs Result Diagrams: 11/01/18 03:30 11/01/18 03:30 Labs: Laboratory Results - last 24 hr 10/28/18 10/31/18 10/31/18 22:00 14:22 22:05 WBC RBC Hgb 8.6 L 7.5 L Hct 25.0 L 21.3 L MCV MCH MCHC RDW Plt Count Neut % (Auto) Lymph % (Auto) [place] % (Auto) Eos % (Auto) Baso % (Auto) Neut # (Auto) Lymph # (Auto) [place] # (Auto) Eos # (Auto) Baso # (Auto) PT INR Sodium Potassium Chloride Carbon Dioxide BUN Creatinine Estimated GFR BUN/Creatinine Ratio Glucose Calcium Blood Type A Positive Antibody Screen Negative Crossmatch See Detail 11/01/18 11/01/18 11/01/18 03:30 03:30 03:30 WBC 7.0 RBC 2.48 L Hgb 8.1 L Hct 23.2 L MCV 93.5 D MCH 32.7 MCHC 35.0 RDW 13.9 Plt Count 198 Neut % (Auto) 60.1 Lymph % (Auto) 21.8 L [place] % (Auto) 14.2 H Eos % (Auto) 3.3 Baso % (Auto) 0.6 Neut # (Auto) 4200 Lymph # (Auto) 1500 [place] # (Auto) 1000 H Eos # (Auto) 200 Baso # (Auto) 0 PT 14.1 H INR 1.2 Sodium 129 L Potassium 3.4 Chloride 96 L Carbon Dioxide 27 BUN 7 L Creatinine 0.60 L Estimated GFR > 60.0 BUN/Creatinine Ratio 11.7 Glucose 106 Calcium 8.5 Blood Type Antibody Screen Crossmatch Assessment & Plan (1) Acute GI bleeding: Problem details: Patient developed recurrent bleeding on Lovenox. The Lovenox has since been discontinued. Will start low-dose Coumadin and allow a gradual rise of his INR to around 2. Patient will be observed in the hospital to ensure that he has no recurrent bleeding when anticoagulated. He is receiving his 2nd unit of blood at this time. Current visit: Yes Status: Acute (2) Acute blood loss anemia: Problem details: Patient presented with Acute blood loss anemia, present on admission. His Hemoglobin/Hematocrit is still trending down but he has not required transfusion yet. No futher bleeding at this point. Will recheck H/H if hemoglobin less than 8 grams will transfuse 1 unit. No need for transfusion at this point. Patient does have iron deficiency and will start IV iron at this time. Current visit: Yes Status: Acute (3) Atrial fibrillation with rapid ventricular response: Problem details: The patient was unable to take his usual home medications this morning. As he is not planning to have an urgent endoscopy at this time will resume his usual beta-kourtney dose. Will start IV beta-blockers if needed. Will work closely to control his heart rate. Resume digoxin and continue metoprolol 100 mg every morning Present on admission. Improved Current visit: Yes Status: Acute (4) History of mitral valve repair: Problem details: The patient is chronically anticoagulated for mitral valve repair. He is typically on Coumadin which has been held. His Lovenox is being held as well as his aspirin. Present on admission Will resume lovenox today if no longer bleeding and H/H stabilizes. Resume anticoagulation today Current visit: Yes Status: Acute (5) BPH (benign prostatic hyperplasia): Problem details: Chronic Current visit: Yes Status: Acute (6) Hyponatremia: Problem details: Noted, will discontinue IV hydration today and follow closely Patient will be placed on a 1200 cc fluid restriction. Will recheck his sodium tomorrow. Current visit: Yes Status: Acute (7) Hypertension: Problem details: Chronic, patient currently is normotensive. Will hold losartan for now. Will resume once blood pressure improves. Blood pressure increased today. Will resume his losartan which is his usual medication. Current visit: Yes Status: Acute
--- NOTE | 2018-11-01 12:21 | PC.NURSE ---
Addendum entered by Syeda White R.N. 11/01/18 13:52: reviewed post transfusion lab results with both pt and spouse- encouraged increased mobility and shower even Original Note: md ordered transfusion of rbc ( as originally ordered) to total 2u rbc - tranfusion was without complications and will await repeat H/H- no evidence of active bleeding at this time- last bm was smear x2 over noc shift- encouraged pt to sit up to chair for full liquids and although he is apprehensive he is compliant with this and tolerating full liquids well - no evidence of n/v, medicated with 2 tylenol for c/o headache which he reports was effective. continue to monitoir pt and increase mobility as ewll as monitor labs closely.
[2018-11-01 13:27] LABS: Hematocrit 27.1 % (41-53); Hemoglobin 9.5 g/dL (13.5-17.5)
[2018-11-01 13:37] LABS: INR 1.2 (0.9-1.3); Prothrombin Time 13.6 SECONDS (10.1-12.7)
[2018-11-01] MEDS: DIGOXIN 0.25 MG TABLET PO (16:46)
[2018-11-01] MEDS: WARFARIN 2.5 MG TABLET PO (16:46)
[2018-11-01] MEDS: METOPROLOL IR 50 MG TABLET PO (16:47)
[2018-11-01] MEDS: ONDANSETRON 4 MG/2 ML INJ IV (19:33)
[2018-11-02] VITALS (10 sets, daily range): BP systolic 132–154; BP diastolic 60–82; PULSE 76–98; RESP 18–22; TEMP 36.5–36.9; O2SAT 94–97
[2018-11-02] MEDS: SODIUM CHLORIDE 0.9% FLUSH 10 ML IV ×3 (00:50→20:33)
[2018-11-02 05:12] LABS: Add Manual Diff / Slide Review NO; Basophils Absolute Auto 100 /uL (0-100); Basophils Percent Auto 0.7 % (0-2); Eosinophils Absolute Auto 400 /uL (0-450); Hematocrit 26.5 % (41-53); Hemoglobin 9.2 g/dL (13.5-17.5); Lymphocytes Absolute Auto 1300 /uL (1100-4500); Lymphocytes Percent Auto 17.5 % (25-40); Mean Corpuscular HGB Conc 34.8 % (30-36); Mean Corpuscular Hemoglobin 32.5 PG (26-34); Mean Corpuscular Volume 93.4 fL (80-100); Monocytes Absolute Auto 1100 /uL (0-900); Monocytes Percent Auto 14.5 % (3-14); Neutrophils Absolute Auto 4700 /uL (1500-7000); Neutrophils Percent Auto 62.3 % (50-75); Platelet Count 248 X10^3/uL (150-400); Red Blood Cell Count 2.84 X10^6/uL (4.5-5.9); Red Cell Distribution Width 14.1 % (11.6-14.8); White Blood Cell Count 7.5 X10^3/uL (4.5-11.0)
[2018-11-02 05:16] LABS: INR 1.2 (0.9-1.3); Prothrombin Time 13.6 SECONDS (10.1-12.7)
[2018-11-02 05:20] LABS: BUN Creatinine Ratio 6.7 (6-22); Blood Urea Nitrogen 4 mg/dL (9-20); Calcium 8.8 mg/dL (8.4-10.2); Carbon Dioxide 28 mmol/L (22-32); Chloride 96 mmol/L (98-107); Estimated Glomerular Filt Rate > 60.0 mL/min (>60); Glucose 105 mg/dL (80-110); HEMOLYSIS < 15 (0-50); Potassium 3.7 mmol/L (3.4-5.1); Sodium 129 mmol/L (137-145)
[2018-11-02] MEDS: METOPROLOL IR 50 MG TABLET 100 MG PO (05:46)
[2018-11-02] MEDS: PANTOPRAZOLE 20 MG TABLET PO ×2 (05:46→20:33)
--- NOTE | 2018-11-02 06:48 | PC.NURSE ---
NOC Shift: Pt post GIB, post transfusion. Awake, alert oriented, and denies pain. OOB to bathroom, FWW. Off tele, VSS. This AM pt took shower, tolerated activity until walking back to room, become dizzy, light headed and very pale. Returned to bed, HR 116, BP stable, AM metroprolol given. Pt color returned to lips, face within 5mins, however at times pt appeared to have pale lips, face intermittently. H&H stable 04/16 this AM. No active bleeding noted, pt passing gas no stools. Pt concerned about discharge today, discussed and encouraged to discuss concerns w/MD at rounds.
[2018-11-02] MEDS: ONDANSETRON 4 MG/2 ML INJ IV ×2 (08:18→20:33)
[2018-11-02] MEDS: TAMSULOSIN 0.4 MG CAPSULE PO (08:18)
[2018-11-02] MEDS: MULTIVITAMIN 1 TABLET 1 TAB PO (08:18)
[2018-11-02] MEDS: SIMETHICONE 80 MG TABLET PO ×2 (09:39→20:33)
--- NOTE | 2018-11-02 10:05 | P.PN_ITS ---
Subjective Date Patient Seen: 11/02/18 Time Patient Seen: 10:04 Interval history: He is seen today to follow up his anemia, post colonoscopy biopsy lower GI bleeding, mitral valve replacement/Coumadin therapy anticoagulation. His INR is 1.2. He was given 2.5 mg of Coumadin yesterday. He has had no further signs of rectal bleeding although his hemoglobin has dropped from 9.5-9.2 today. His sodium level is stable at 129 despite the 1200 mL fluid restriction. His heart rate is 97. He was up this morning taking a shower and felt dizzy briefly afterwards but feels fine now lying in bed. Exam Vital Signs (past 8 hours): - 11/02/18 04:00 11/02/18 06:00 11/02/18 08:00 Temperature 98.5 F 98 F Pulse Rate 97 H 92 H Respiratory Rate 18 20 Blood Pressure 135/81 132/78 Pulse Oximetry 94 97 97 11/02/18 08:32 Temperature Pulse Rate Respiratory Rate Blood Pressure Pulse Oximetry 97 Oxygen Delivery Method Room Air Oxygen Flow Rate 0 Narrative Exam Narrative: He is alert and oriented x3 and in no apparent distress. heart is regular rate and rhythm with a mechanical valve click heard. Lungs are clear to auscultation bilaterally. Abdomen is soft, bowel sounds positive, nontender, no organomegaly. Extremities have no ankle edema. Objective Labs Result Diagrams: 11/02/18 04:40 11/02/18 04:40 Labs: Laboratory Results - last 24 hr 10/28/18 11/01/18 11/01/18 22:00 13:15 13:15 WBC RBC Hgb 9.5 L Hct 27.1 L MCV MCH MCHC RDW Plt Count Neut % (Auto) Lymph % (Auto) [place] % (Auto) Eos % (Auto) Baso % (Auto) Neut # (Auto) Lymph # (Auto) [place] # (Auto) Eos # (Auto) Baso # (Auto) PT 13.6 H INR 1.2 Sodium Potassium Chloride Carbon Dioxide BUN Creatinine Estimated GFR BUN/Creatinine Ratio Glucose Calcium Blood Type A Positive Antibody Screen Negative Crossmatch See Detail 11/02/18 11/02/18 11/02/18 04:40 04:40 04:40 WBC 7.5 RBC 2.84 L Hgb 9.2 L Hct 26.5 L MCV 93.4 MCH 32.5 MCHC 34.8 RDW 14.1 Plt Count 248 Neut % (Auto) 62.3 Lymph % (Auto) 17.5 L [place] % (Auto) 14.5 H Eos % (Auto) 5.0 H Baso % (Auto) 0.7 Neut # (Auto) 4700 Lymph # (Auto) 1300 [place] # (Auto) 1100 H Eos # (Auto) 400 Baso # (Auto) 100 PT 13.6 H INR 1.2 Sodium 129 L Potassium 3.7 Chloride 96 L Carbon Dioxide 28 BUN 4 L Creatinine 0.60 L Estimated GFR > 60.0 BUN/Creatinine Ratio 6.7 Glucose 105 Calcium 8.8 Blood Type Antibody Screen Crossmatch Assessment & Plan Assessment & Plan narrative: (1) Acute GI bleeding: Problem details: Patient developed recurrent bleeding on Lovenox after polypectomy. The Lovenox has since been discontinued. Will continue low-dose Coumadin and allow a gradual rise of his INR to around 2. Patient will be observed in the hospital to ensure that he has no recurrent bleeding when anticoagulated. He received 2 units of packed red blood cells. Surgery is following. Current visit: Yes Status: Acute (2) Acute blood loss anemia: Problem details: Patient presented with Acute blood loss anemia, present on admission. His Hemoglobin/Hematocrit is slightly lower post transfusion but is probably just equilibrating. No futher bleeding at this point. Will recheck H/H daily and if hemoglobin is less than 8 grams will transfuse again. No need for transfusion today. Patient does have iron deficiency and will consider IV iron at this time. Current visit: Yes Status: Acute (3) Atrial fibrillation with rapid ventricular response: Problem details: Resumed digoxin and metoprolol yesterday. Cautiously resuming anticoagulation with Coumadin. Present on admission. Improved Current visit: Yes Status: Acute (4) History of mitral valve repair: Problem details: The patient is chronically anticoagulated for atrial fibrillation and mitral valve repair. He is typically on Coumadin which has been held. His Lovenox is being held as well as his aspirin. Present on admission Coumadin dosing per surgery, likely to be 5 mg today. Current visit: Yes Status: Acute (5) BPH (benign prostatic hyperplasia): Problem details: Chronic Current visit: Yes Status: Acute (6) Hyponatremia: Problem details: Stable at 129 today Continue 1200 cc fluid restriction. Will recheck his sodium tomorrow. Current visit: Yes Status: Acute (7) Hypertension: Problem details: Chronic, continue losartan and metoprolol. Current visit: Yes Status: Acute
--- NOTE | 2018-11-02 11:04 | PM.PN.1 ---
Subjective Date Patient Seen: 11/02/18 Time Patient Seen: 11:05 Interval history: Patient has been in the Intensive Care Unit all week for post colonoscopy polypectomy bleeding. for the last 24 hours there has been no further bleeding. And his hemoglobin has remained stable at 9.5 9.2. Patient was started on a low dose of Coumadin yesterday at 2.5 mg this is for his mitral valve prophylaxis. He has had no bleeding in 24 hours. Exam Vital Signs (past 8 hours): - 11/02/18 04:00 11/02/18 06:00 11/02/18 08:00 Temperature 98.5 F 98 F Pulse Rate 97 H 92 H Respiratory Rate 18 20 Blood Pressure 135/81 132/78 Pulse Oximetry 94 97 97 11/02/18 08:32 Temperature Pulse Rate Respiratory Rate Blood Pressure Pulse Oximetry 97 Oxygen Delivery Method Room Air Oxygen Flow Rate 0 Narrative Exam Narrative: Patient is afebrile with stable vital signs. He has no abdominal pain. Abdomen is less distended and nontender. Objective Labs Result Diagrams: 11/02/18 04:40 11/02/18 04:40 Labs: Laboratory Results - last 24 hr 10/28/18 11/01/18 11/01/18 22:00 13:15 13:15 WBC RBC Hgb 9.5 L Hct 27.1 L MCV MCH MCHC RDW Plt Count Neut % (Auto) Lymph % (Auto) [place] % (Auto) Eos % (Auto) Baso % (Auto) Neut # (Auto) Lymph # (Auto) [place] # (Auto) Eos # (Auto) Baso # (Auto) PT 13.6 H INR 1.2 Sodium Potassium Chloride Carbon Dioxide BUN Creatinine Estimated GFR BUN/Creatinine Ratio Glucose Calcium Crossmatch See Detail 11/02/18 11/02/18 11/02/18 04:40 04:40 04:40 WBC 7.5 RBC 2.84 L Hgb 9.2 L Hct 26.5 L MCV 93.4 MCH 32.5 MCHC 34.8 RDW 14.1 Plt Count 248 Neut % (Auto) 62.3 Lymph % (Auto) 17.5 L [place] % (Auto) 14.5 H Eos % (Auto) 5.0 H Baso % (Auto) 0.7 Neut # (Auto) 4700 Lymph # (Auto) 1300 [place] # (Auto) 1100 H Eos # (Auto) 400 Baso # (Auto) 100 PT 13.6 H INR 1.2 Sodium 129 L Potassium 3.7 Chloride 96 L Carbon Dioxide 28 BUN 4 L Creatinine 0.60 L Estimated GFR > 60.0 BUN/Creatinine Ratio 6.7 Glucose 105 Calcium 8.8 Crossmatch Assessment & Plan Assessment & Plan narrative: It would appear that the patient has GI bleeding has stopped. He has been started back on Coumadin. We are using low-dose to start. INR was not changed today is still 1.2. We will increase his Coumadin to 5 mg today. We will not use heparin. I have advanced his diet also today. If his INR slowly increases tomorrow then he may be considered for discharge. Patient actually takes high doses of Coumadin at home 5 mg 5 days and 10 mg 2 days a week.
[2018-11-02] MEDS: WARFARIN 5 MG TABLET PO (17:07)
[2018-11-02] MEDS: METOPROLOL IR 50 MG TABLET PO (17:07)
[2018-11-02] MEDS: DIGOXIN 0.25 MG TABLET PO (17:07)
[2018-11-03] VITALS (8 sets, daily range): BP systolic 118–152; BP diastolic 60–72; PULSE 63–98; RESP 16–20; TEMP 36.6–37.1; O2SAT 98–100
[2018-11-03] MEDS: SIMETHICONE 80 MG TABLET PO ×3 (00:10→09:02)
[2018-11-03 05:16] LABS: INR 1.3 (0.9-1.3); Prothrombin Time 14.6 SECONDS (10.1-12.7)
[2018-11-03 05:17] LABS: Hematocrit 26.1 % (41-53); Hemoglobin 9.1 g/dL (13.5-17.5)
[2018-11-03 05:20] LABS: BUN Creatinine Ratio 5.7 (6-22); Blood Urea Nitrogen 4 mg/dL (9-20); Calcium 8.7 mg/dL (8.4-10.2); Carbon Dioxide 29 mmol/L (22-32); Chloride 95 mmol/L (98-107); Estimated Glomerular Filt Rate > 60.0 mL/min (>60); Glucose 109 mg/dL (80-110); HEMOLYSIS < 15 (0-50); Potassium 3.4 mmol/L (3.4-5.1); Sodium 129 mmol/L (137-145)
[2018-11-03 05:50] LABS: Magnesium 1.6 mg/dL (1.6-2.3)
[2018-11-03] MEDS: METOPROLOL IR 50 MG TABLET 100 MG PO (06:25)
[2018-11-03] MEDS: PANTOPRAZOLE 20 MG TABLET PO ×2 (06:25→21:12)
--- NOTE | 2018-11-03 08:16 | PC.NURSE ---
pt doing well repors no pain, nausea or lightheadedness- ambulated out in hallway using walker as he remains anxious- up to chair for am meal- no evidence of current or active gi bleed-
--- NOTE | 2018-11-03 08:32 | P.PN_ITS ---
Subjective Date Patient Seen: 11/03/18 Interval history: Baltazar Reeves is a 73-year-old male with a past medical history significant for CAD, hypertension, hyperlipidemia, and atrial fibrillation and mitral valve replacement on warfarin, who presented with bright red blood per rectum after recent colonoscopy with polypectomy. The patient is resting in bedside chair comfortably. He had 1 bowel movement t his morning with mild melena but no bayron red blood. He endorses a mild nausea sensation but nothing overt. He denies shortness of breath but does report that he tires easily with ambulation likely due to anemia. He denies headache, chest pain, abdominal pain, nausea, vomiting, fever, chills, dysuria, diarrhea or constipation. He is voiding and eliminating without difficulty. He is up ambulating without assistance. Exam Vital Signs (past 8 hours): - 11/03/18 03:49 11/03/18 08:09 11/03/18 08:11 Temperature 98.0 F 98.8 F Pulse Rate 98 H 63 Respiratory Rate 18 16 Blood Pressure 152/62 H 131/68 Pulse Oximetry 98 98 98 Oxygen Delivery Method Room Air Oxygen Flow Rate 0 Narrative Exam Narrative: General: Older gentleman sitting in bedside chair and in no acute distress, well-developed, well-nourished, appropriately interactive. HEENT: Normocephalic, atraumatic. External ears without defect. Pupils equal, round, and reactive to light. Anicteric sclerae, moist conjunctivae, and no lid lag. Neck: Supple with full range of motion. No jugular venous distension. No bruits. No lymphadenopathy or thyromegaly. Cardiovascular: Regular rate and rhythm with 3/6 systolic ejection murmur. No rubs or gallops appreciated. Pulmonary: Clear to auscultation bilaterally without crackles, wheezes, or rhonchi. Normal respiratory effort with no use of accessory muscles. Abdomen: Soft, bowel sounds present, nontender, nondistended. No hepatosplenomegaly or masses appreciated. Extremities: No clubbing, cyanosis, or edema. Skin: Normal temperature, turgor, and texture; no rash, ulcers, or subcutaneous nodules appreciated. Neurological: Cranial nerves grossly intact. Psychiatric: Normal mood and affect. Alert and oriented to person, place, and time. Objective Labs Result Diagrams: 11/03/18 04:54 11/03/18 04:54 Labs: Laboratory Results - last 24 hr 11/03/18 11/03/18 11/03/18 04:54 04:54 04:54 Hgb 9.1 L Hct 26.1 L PT 14.6 H INR 1.3 Sodium 129 L Potassium 3.4 Chloride 95 L Carbon Dioxide 29 BUN 4 L Creatinine 0.70 Estimated GFR > 60.0 BUN/Creatinine Ratio 5.7 L Glucose 109 Calcium 8.7 Magnesium 11/03/18 04:54 Hgb Hct PT INR Sodium Potassium Chloride Carbon Dioxide BUN Creatinine Estimated GFR BUN/Creatinine Ratio Glucose Calcium Magnesium 1.6 Assessment & Plan Assessment & Plan narrative: Baltazar Reeves is a 73-year-old male with a past medical history significant for CAD, hypertension, hyperlipidemia, and atrial fibrillation and mitral valve replacement on warfarin, who presented with bright red blood per rectum after recent colonoscopy with polypectomy. 1. Acute GI bleeding, secondary to recent colonoscopy with polypectomy, present on admission. Active. -Patient developed recurrent bleeding on Lovenox after colonoscopy with polypectomy. The Lovenox has since been discontinued. Continue Coumadin and allow for a gradual rise of his INR. Patient will be observed in the hospital to ensure that he has no recurrent bleeding when anticoagulated. He received 2 U PRBC and 2 U FFP. Surgery is following. 2. Acute blood loss anemia, present on admission. Active. -Patient presented with acute blood loss after recent colonoscopy with polype ctomy on Lovenox to bridge to warfarin. -Received 2 U PRBC and 2 U FFP. No need for further transfusion. Patient does have iron deficiency and will start iron supplementation with ferrous sulfate 325 mg daily with food. 3. Hyponatremia, acuity unclear, present on admission. Active. -Sodium stable at 129. Continue 1200 cc fluid restriction. Continue to monitor sodium daily. 4. Atrial fibrillation with RVR, present on admission. RVR resolved. -Continue digoxin 0.25 mg daily and metoprolol tartrate 100 mg daily. -Cautiously resuming anticoagulation with Coumadin. Patient is typically on 5 mg everyday other than Thurs/Sat in which he is on 10 mg daily. Continue to adjust Coumadin as needed and monitor INR daily. 5. History of mitral valve repair, present on admission. Stable. -The patient is chronically anticoagulated for atrial fibrillation and mitral valve repair. He is typically on Coumadin which was held due to recent colonoscopy and he was on Lovenox to bridge. Discontinue Lovenox as continue to bleed. Restarted warfarin at half normal dose 5 mg daily. Increased warfarin to 7.5 mg daily today. 6. BPH, chronic, present on admission. Stable. -Continue tamsulosin 0.4 mg daily. 7. Hypertension, chronic, present on admission. Stable. -Continue losartan 100 mg daily and metoprolol tartrate 100 mg daily. Disposition: Patient likely to discharge in several days once INR is therapeutic and there is no evidence of recurrent GI bleed.
[2018-11-03] MEDS: LOSARTAN 50 MG TABLET PO (09:02)
[2018-11-03] MEDS: MULTIVITAMIN 1 TABLET 1 TAB PO (09:02)
[2018-11-03] MEDS: TAMSULOSIN 0.4 MG CAPSULE PO (09:03)
[2018-11-03] MEDS: SODIUM CHLORIDE 0.9% FLUSH 10 ML IV ×2 (09:07→21:12)
--- NOTE | 2018-11-03 11:34 | P.PN_ITS ---
Subjective Date Patient Seen: 11/03/18 Time Patient Seen: 10:32 Interval history: Doing well, no pain, irving diet. Noticed likely residual small volume melena with BM today but Hg stable, vitals normal, asymptomatic. INR still subtherapeutic, on low dose Coumadin. Exam Vital Signs (past 8 hours): - 11/03/18 03:49 11/03/18 08:09 11/03/18 08:11 Temperature 98.0 F 98.8 F Pulse Rate 98 H 63 Respiratory Rate 18 16 Blood Pressure 152/62 H 131/68 Pulse Oximetry 98 98 98 Oxygen Delivery Method Room Air Oxygen Flow Rate 0 Narrative Exam Narrative: AAO, NAD, overweight male EOMI, MMM, no scleral icterus unlabored RA soft, nt/nd MAEW Objective Labs Result Diagrams: 11/03/18 04:54 11/03/18 04:54 Labs: Laboratory Results - last 24 hr 11/03/18 11/03/18 11/03/18 04:54 04:54 04:54 Hgb 9.1 L Hct 26.1 L PT 14.6 H INR 1.3 Sodium 129 L Potassium 3.4 Chloride 95 L Carbon Dioxide 29 BUN 4 L Creatinine 0.70 Estimated GFR > 60.0 BUN/Creatinine Ratio 5.7 L Glucose 109 Calcium 8.7 Magnesium 11/03/18 04:54 Hgb Hct PT INR Sodium Potassium Chloride Carbon Dioxide BUN Creatinine Estimated GFR BUN/Creatinine Ratio Glucose Calcium Magnesium 1.6 Assessment & Plan Assessment & Plan narrative: - no evidence of active/ ongoing bleeding, melena likely residual from colon --> ok to advance coumadin - diet as tolerating - home in 1-2 days when INR increasing appropriately with no evidence of bleedi ng; precautions discussed
--- NOTE | 2018-11-03 14:11 | CM.DPNOTE ---
DCP:continued: Case received and EMR for last few days is reviewed. Discussed in Team Rounds with hospitalist Dr. Gavin. She reports pt is eager for d/c but is aware that he needs to wait for INR to be stable Surgeon Dr. Rima Dahl also saw pt this morning and discussed case with Dr. Gavin and both are in agreement with the above plan. Pt is up and mobilizing. P: home when stable for same.
[2018-11-03] MEDS: FERROUS GLUCONATE 324 MG TABLET PO (17:40)
[2018-11-03] MEDS: METOPROLOL IR 50 MG TABLET PO (17:41)
[2018-11-03] MEDS: WARFARIN 5 MG TABLET 10 MG PO (17:41)
[2018-11-03] MEDS: DIGOXIN 0.25 MG TABLET PO (17:41)
--- NOTE | 2018-11-03 23:52 | PC.NURSE ---
1530- pt moved from ICU to 224. PT awake and alert. cooperative with staff. up per self walking in hallways. calls appropriately. belongings and call light within reach. pt pleasant. bandaid applied to right ashby from scratching himself in shower earlier today. will continue to monitor pt for safety. denies pain.
[2018-11-04] VITALS (11 sets, daily range): BP systolic 112–150; BP diastolic 48–73; PULSE 68–88; RESP 16–18; TEMP 36.4–37; O2SAT 95–100
--- NOTE | 2018-11-04 02:11 | PC.NURSE ---
2300- Pt in bed; moving independently in room. RA w/ stable VS; saline locked; denies pain. INR 1.3 w/ goal of 1.8; pt having anxiety over lab results will cont to monitor. HX of afib; no tele at this time. 0600- PO meds given and swallowed w/o difficulty; pt denies pain.
[2018-11-04] MEDS: PANTOPRAZOLE 20 MG TABLET PO ×2 (06:17→20:17)
[2018-11-04] MEDS: METOPROLOL IR 50 MG TABLET 100 MG PO (06:17)
[2018-11-04 06:21] LABS: BUN Creatinine Ratio 7.1 (6-22); Blood Urea Nitrogen 5 mg/dL (9-20); Calcium 8.9 mg/dL (8.4-10.2); Carbon Dioxide 28 mmol/L (22-32); Chloride 96 mmol/L (98-107); Estimated Glomerular Filt Rate > 60.0 mL/min (>60); Glucose 105 mg/dL (80-110); HEMOLYSIS < 15 (0-50); Magnesium 1.7 mg/dL (1.6-2.3); Potassium 3.3 mmol/L (3.4-5.1); Sodium 130 mmol/L (137-145)
[2018-11-04 06:33] LABS: Add Manual Diff / Slide Review NO; Basophils Absolute Auto 100 /uL (0-100); Basophils Percent Auto 0.8 % (0-2); Eosinophils Absolute Auto 600 /uL (0-450); Eosinophils Percent Auto 8.7 % (2-4); Hematocrit 27.1 % (41-53); Hemoglobin 9.1 g/dL (13.5-17.5); Lymphocytes Absolute Auto 1300 /uL (1100-4500); Lymphocytes Percent Auto 18.2 % (25-40); Mean Corpuscular HGB Conc 33.5 % (30-36); Mean Corpuscular Hemoglobin 31.9 PG (26-34); Mean Corpuscular Volume 95.3 fL (80-100); Monocytes Absolute Auto 1100 /uL (0-900); Monocytes Percent Auto 14.6 % (3-14); Neutrophils Absolute Auto 4200 /uL (1500-7000); Neutrophils Percent Auto 57.7 % (50-75); Platelet Count 307 X10^3/uL (150-400); Red Blood Cell Count 2.84 X10^6/uL (4.5-5.9); Red Cell Distribution Width 14.4 % (11.6-14.8); White Blood Cell Count 7.2 X10^3/uL (4.5-11.0)
[2018-11-04 07:15] LABS: INR 1.3 (0.9-1.3); Prothrombin Time 15.5 SECONDS (10.1-12.7)
[2018-11-04] MEDS: SODIUM CHLORIDE 0.9% FLUSH 10 ML IV ×2 (08:40→20:17)
[2018-11-04] MEDS: FERROUS GLUCONATE 324 MG TABLET PO (08:43)
[2018-11-04] MEDS: MULTIVITAMIN 1 TABLET 1 TAB PO (08:43)
[2018-11-04] MEDS: TAMSULOSIN 0.4 MG CAPSULE PO (08:43)
[2018-11-04] MEDS: LOSARTAN 50 MG TABLET PO (08:46)
--- NOTE | 2018-11-04 11:16 | PC.NURSE ---
Addendum entered by Jackelyn Milian R.N. 11/04/18 14:18: Pt's plan to stay one more night per Dr. Gavin. Waffle cushion given to pt to sit on, he stated his buttocks was sore from the bed, no skin issue noted. Original Note: Day Shift- Pt A&OX4, able to mkae his needs known, ambulating in room indep with steady gait, asymptomatic. Reported has had one dark tarry BM this shift. Voiding qs. Avoiding red colored foods. Does c/o mild abd bloating. PRN Simethicone offered, pt not needing at this time. Verbal order taken from Dr. Gavin to repeat INR STAT.
[2018-11-04 12:05] LABS: INR 1.3 (0.9-1.3); Prothrombin Time 15.6 SECONDS (10.1-12.7)
--- NOTE | 2018-11-04 12:42 | PM.PN.1 ---
Subjective Date Patient Seen: 11/04/18 Time Patient Seen: 12:42 Interval history: Seeing pt for post colonoscopy bleeding. Was bridged on lovenox from his usual coumadin. No bleeding overnight, Hg stable and INR still1.3. David diet, no pain. Exam Vital Signs (past 8 hours): - 11/04/18 05:28 11/04/18 08:46 11/04/18 08:54 Temperature 97.7 F Pulse Rate 77 76 Respiratory Rate 16 Blood Pressure 139/73 130/73 Pulse Oximetry 96 98 11/04/18 09:00 Temperature 97.6 F Pulse Rate 76 Respiratory Rate 16 Blood Pressure 130/73 Pulse Oximetry 98 Oxygen Delivery Method Room Air Oxygen Flow Rate 0 Narrative Exam Narrative: AAO, NAD EOMI, MMM unlabored RA soft, nt/nd MAEW Objective Labs Result Diagrams: 11/04/18 05:15 11/04/18 05:15 Labs: Laboratory Results - last 24 hr 11/04/18 11/04/18 11/04/18 05:15 05:15 05:15 WBC 7.2 RBC 2.84 L Hgb 9.1 L Hct 27.1 L MCV 95.3 MCH 31.9 MCHC 33.5 RDW 14.4 Plt Count 307 Neut % (Auto) 57.7 Lymph % (Auto) 18.2 L [place] % (Auto) 14.6 H Eos % (Auto) 8.7 H Baso % (Auto) 0.8 Neut # (Auto) 4200 Lymph # (Auto) 1300 [place] # (Auto) 1100 H Eos # (Auto) 600 H Baso # (Auto) 100 PT 15.5 H INR 1.3 Sodium 130 L Potassium 3.3 L Chloride 96 L Carbon Dioxide 28 BUN 5 L Creatinine 0.70 Estimated GFR > 60.0 BUN/Creatinine Ratio 7.1 Glucose 105 Calcium 8.9 Magnesium 1.7 11/04/18 11:40 WBC RBC Hgb Hct MCV MCH MCHC RDW Plt Count Neut % (Auto) Lymph % (Auto) [place] % (Auto) Eos % (Auto) Baso % (Auto) Neut # (Auto) Lymph # (Auto) [place] # (Auto) Eos # (Auto) Baso # (Auto) PT 15.6 H INR 1.3 Sodium Potassium Chloride Carbon Dioxide BUN Creatinine Estimated GFR BUN/Creatinine Ratio Glucose Calcium Magnesium Assessment & Plan Assessment & Plan narrative: - fine with surgery either if pt goes home today on coumadin with close FU or if he stays another night for a high dose again and hopefully a move in the right direction --> pt on the fence, tired of hospital but he and are understandably apprehensive so I would lean towards them staying the night --> discussed with primary and ultimate decision to them, will follow if remains
--- NOTE | 2018-11-04 13:10 | P.HP_ITS ---
History of Present Illness Date Patient Seen: 10/27/18 Time Patient Seen: 13:08 Chief complaint: BLOODY STOOLS Narrative: Mr. 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 He was seen by Dr. Villafana in our clinic. He is on chronic anticoagulation for atrial fibrillation. He reports that he has had multiple colonoscopies in the past and has bled after each 1. Dr. Villafana gave him instructions and he has been taking Lovenox twice daily while holding his Coumadin. He presents for screening colonoscopy. Patient History Medical History Atrial fibrillation (Acute) Benign prostatic hyperplasia (Acute) Personal history of colonic polyps (Acute) Surgical History History of colonoscopy with polypectomy (Acute) History of mitral valve replacement (Acute) Family History Mother No known health problems Father No known health problems Social History household members: spouse Smoking Status: Former smoker Family & Social History Family History Mother No known health problems Father No known health problems Social History: household members spouse Prior Living Arrangements House Safety & Behavioral: Feels Safe in Current Yes Environment Been Physically Hurt or No Threatened By a Person Suicidal Ideation Description None Suicide Plan Description No Plan Tobacco & Substance use: Smoking Status Former smoker alcohol intake frequency 3 or more drinks per day Substance Use Type does not use Meds Home Medications Medication Instructions Recorded Confirmed Type aspirin 81 mg PO DAILY #0 09/02/11 10/29/18 History losartan 100 mg PO DAILY #0 09/02/11 10/29/18 History warfarin 12.5 mg PO QDAY #0 09/02/11 10/29/18 History digoxin 250 mcg tablet 0.25 mg PO DAILY 09/24/18 10/29/18 History enoxaparin 80 mg/0.8 mL 80 mg SUBCUT Q12H #7.2 ml 09/24/18 10/29/18 Rx subcutaneous syringe metoprolol tartrate 100 mg tablet 100 mg PO QAM tab 09/24/18 10/29/18 History metoprolol tartrate 50 mg tablet 50 mg PO .qhs tab 09/24/18 10/29/18 History multivitamin tablet 1 tab PO DAILY 09/24/18 10/29/18 History sulfamethoxazole-trimethoprim See Rx Instructions .ROUTE .COMPLEX 10/27/18 10/29/18 History tamsulosin 0.4 mg PO DAILY 10/27/18 10/29/18 History Allergies Allergy/AdvReac Type Severity Reaction Status Date / Time No Known Drug Allergies Allergy Verified 10/27/18 07:08 Review of Systems Review of Systems All systems reviewed & are unremarkable except as noted in HPI and below Exam Vital Signs (past 8 hours): - 11/04/18 05:28 11/04/18 08:46 11/04/18 08:54 Temperature 97.7 F Pulse Rate 77 76 Respiratory Rate 16 Blood Pressure 139/73 130/73 Pulse Oximetry 96 98 11/04/18 09:00 Temperature 97.6 F Pulse Rate 76 Respiratory Rate 16 Blood Pressure 130/73 Pulse Oximetry 98 Oxygen Delivery Method Room Air Oxygen Flow Rate 0 Narrative Exam Narrative: Pleasant gentleman in no distress HEENT: Normocephalic and atraumatic, pupils equal round reactive to light accommodation with anicteric sclera Lungs: Clear bilaterally Heart: Irregularly irregular Abdomen: Soft, nontender, active bowel sounds Extremities: Warm well perfused Objective Labs Result Diagrams: 11/04/18 05:15 11/04/18 05:15 Labs: Laboratory Results - last 24 hr 11/04/18 11/04/18 11/04/18 05:15 05:15 05:15 WBC 7.2 RBC 2.84 L Hgb 9.1 L Hct 27.1 L MCV 95.3 MCH 31.9 MCHC 33.5 RDW 14.4 Plt Count 307 Neut % (Auto) 57.7 Lymph % (Auto) 18.2 L [place] % (Auto) 14.6 H Eos % (Auto) 8.7 H Baso % (Auto) 0.8 Neut # (Auto) 4200 Lymph # (Auto) 1300 [place] # (Auto) 1100 H Eos # (Auto) 600 H Baso # (Auto) 100 PT 15.5 H INR 1.3 Sodium 130 L Potassium 3.3 L Chloride 96 L Carbon Dioxide 28 BUN 5 L Creatinine 0.70 Estimated GFR > 60.0 BUN/Creatinine Ratio 7.1 Glucose 105 Calcium 8.9 Magnesium 1.7 11/04/18 11:40 WBC RBC Hgb Hct MCV MCH MCHC RDW Plt Count Neut % (Auto) Lymph % (Auto) [place] % (Auto) Eos % (Auto) Baso % (Auto) Neut # (Auto) Lymph # (Auto) [place] # (Auto) Eos # (Auto) Baso # (Auto) PT 15.6 H INR 1.3 Sodium Potassium Chloride Carbon Dioxide BUN Creatinine Estimated GFR BUN/Creatinine Ratio Glucose Calcium Magnesium Assessment & Plan Assessment & Plan narrative: Very pleasant 73-year-old gentleman here for a repeat colonoscopy for history of colon polyps. We discussed the risks and benefits of the procedure including the risk of recurrent bleeding. The patient expressed a desire to complete the procedure.
[2018-11-04] MEDS: POTASSIUM CHLORIDE 20 MEQ TAB 40 MEQ PO (13:24)
--- NOTE | 2018-11-04 15:18 | PM.PN.1 ---
Subjective Date Patient Seen: 11/04/18 Interval history: Baltazar Reeves is a 73-year-old male with a past medical history significant for CAD, hypertension, hyperlipidemia, and atrial fibrillation and mitral valve replacement on warfarin, who presented with bright red blood per rectum after recent colonoscopy with polypectomy. The patient is resting in bedside chair comfortably. His INR has not changed and continues to persist at 1.3. He is quite discouraged and eager to go home but has mild anxiety related to recurrent bleeding. He continues to have dark stool but is also on iron therapy. He has had no recurrent hematochezia or bright red blood per rectum. He has no complaints overall and denies headache, shortness of breath, chest pain, abdominal pain, nausea, vomiting, fever, chills, dysuria, diarrhea or constipation. He is voiding and eliminating without difficulty. He is up ambulating without assistance. Exam Vital Signs (past 8 hours): - 11/04/18 08:46 11/04/18 08:54 11/04/18 09:00 Temperature 97.6 F Pulse Rate 76 76 Respiratory Rate 16 Blood Pressure 130/73 130/73 Pulse Oximetry 98 98 11/04/18 13:50 Temperature 98.6 F Pulse Rate 88 Respiratory Rate Blood Pressure 120/57 L Pulse Oximetry Oxygen Delivery Method Room Air Oxygen Flow Rate 0 Narrative Exam Narrative: General: Older gentleman sitting in bedside chair and in no acute distress, well-developed, well-nourished, appropriately interactive. HEENT: Normocephalic, atraumatic. External ears without defect. Pupils equal, round, and reactive to light. Anicteric sclerae, moist conjunctivae, and no lid lag. Neck: Supple with full range of motion. No jugular venous distension. No bruits. No lymphadenopathy or thyromegaly. Cardiovascular: Regular rate and rhythm with 3/6 systolic ejection murmur. No rubs or gallops appreciated. Pulmonary: Clear to auscultation bilaterally without crackles, wheezes, or rhonchi. Normal respiratory effort with no use of accessory muscles. Abdomen: Soft, bowel sounds present, nontender, nondistended. No hepatosplenomegaly or masses appreciated. Extremities: No clubbing, cyanosis, or edema. Skin: Normal temperature, turgor, and texture; no rash, ulcers, or subcutaneous nodules appreciated. Neurological: Cranial nerves grossly intact. Psychiatric: Normal mood and affect. Alert and oriented to person, place, and time. Objective Labs Result Diagrams: 11/04/18 05:15 11/04/18 05:15 Labs: Laboratory Results - last 24 hr 11/04/18 11/04/18 11/04/18 05:15 05:15 05:15 WBC 7.2 RBC 2.84 L Hgb 9.1 L Hct 27.1 L MCV 95.3 MCH 31.9 MCHC 33.5 RDW 14.4 Plt Count 307 Neut % (Auto) 57.7 Lymph % (Auto) 18.2 L [place] % (Auto) 14.6 H Eos % (Auto) 8.7 H Baso % (Auto) 0.8 Neut # (Auto) 4200 Lymph # (Auto) 1300 [place] # (Auto) 1100 H Eos # (Auto) 600 H Baso # (Auto) 100 PT 15.5 H INR 1.3 Sodium 130 L Potassium 3.3 L Chloride 96 L Carbon Dioxide 28 BUN 5 L Creatinine 0.70 Estimated GFR > 60.0 BUN/Creatinine Ratio 7.1 Glucose 105 Calcium 8.9 Magnesium 1.7 11/04/18 11:40 WBC RBC Hgb Hct MCV MCH MCHC RDW Plt Count Neut % (Auto) Lymph % (Auto) [place] % (Auto) Eos % (Auto) Baso % (Auto) Neut # (Auto) Lymph # (Auto) [place] # (Auto) Eos # (Auto) Baso # (Auto) PT 15.6 H INR 1.3 Sodium Potassium Chloride Carbon Dioxide BUN Creatinine Estimated GFR BUN/Creatinine Ratio Glucose Calcium Magnesium Assessment & Plan Assessment & Plan narrative: Baltazar Reeves is a 73-year-old male with a past medical history significant for CAD, hypertension, hyperlipidemia, and atrial fibrillation and mitral valve replacement on warfarin, who presented with bright red blood per rectum after recent colonoscopy with polypectomy. 1. Acute GI bleeding, secondary to recent colonoscopy with polypectomy, present on admission. Active. -Patient developed recurrent bleeding on Lovenox after colonoscopy with polypectomy. The Lovenox has since been discontinued. Continue Coumadin and allow for a gradual rise of his INR. Patient will be observed in the hospital to ensure that he has no recurrent bleeding when anticoagulated. He received 2 U PRBC and 2 U FFP. Surgery is following. 2. Acute blood loss anemia, present on admission. Active. -Patient presented with acute blood loss after recent colonoscopy with polypectomy on Lovenox to bridge to warfarin. -Received 2 U PRBC and 2 U FFP. No need for further transfusion. Patient does have iron deficiency due blood loss and started iron supplementation with ferrous gluconate 324 mg daily with food. 3. Hyponatremia, acuity unclear, present on admission. Active. -Sodium stable at 129. Continue 1200 cc fluid restriction. Continue to monitor sodium daily. 4. Atrial fibrillation with RVR, present on admission. RVR resolved. -Continue digoxin 0.25 mg daily and metoprolol tartrate 100 mg in the morning and 50 mg at night. -He is typically on Coumadin which was held due to recent colonoscopy and he was on Lovenox to bridge. Discontinued Lovenox as he continued to bleed. Cautiously resuming anticoagulation with Coumadin. Patient is typically on 5 mg everyday other than Thurs/Sat in which he is on 10 mg. Patient has received several doses of warfarin without any change in his INR. He has received 4 doses total 5 mg, 2.5 mg, 5 mg, and 10 mg. Continue 10 mg tonight. Continue to adjust Coumadin as needed and monitor INR daily. 5. History of mitral valve repair, present on admission. Stable. -The patient is chronically anticoagulated for atrial fibrillation and mitral valve repair see above. 6. BPH, chronic, present on admission. Stable. -Continue tamsulosin 0.4 mg daily. 7. Hypertension, chronic, present on admission. Stable. -Continue losartan 100 mg daily and metoprolol tartrate 100 mg daily. Disposition: Patient will remain in hospital until INR starts to increase and is closer to therapeutic levels to assure there is no recurrent bleeding.
--- NOTE | 2018-11-04 16:13 | CM.DPC ---
DCP: continued: met with pt as planned. Introduced self and role. His was at bedside. Pt is up and about independently in his room. He states he understands why it is important for him to stay in the hospital until his INR level improves as per the plan outlined by Dr. Gavin today. Asked about his PCP: listed as Dr. Ambar Duran. He confirms he does see her at her [facility] clinic in [place]. She follows the [facility] employees and also sees some others in the community. Pt appears very at ease with the plan to stay in hospital. Home: when stable for same.
[2018-11-04] MEDS: DIGOXIN 0.25 MG TABLET PO (16:49)
[2018-11-04] MEDS: SIMETHICONE 80 MG TABLET PO (16:49)
[2018-11-04] MEDS: METOPROLOL IR 50 MG TABLET PO (16:49)
[2018-11-04] MEDS: WARFARIN 5 MG TABLET 10 MG PO (16:49)
--- NOTE | 2018-11-04 17:59 | PC.NURSE ---
machelle shift- assumed care of pt from outgoing shift. PT awake and alert. family at bedside. given meds per MAR. pt cooperative. Pt uses call raya. up per self. ambulates steady gait. Pt ate dinner, went for a walk. Pt belongings and call light within reach. will continue to monitor pt for safety.
[2018-11-05] MEDS: SIMETHICONE 80 MG TABLET PO (00:11)
--- NOTE | 2018-11-05 02:15 | PC.NURSE ---
2300- Pt up and moving independently in room, stayed one extra night for INR levels below therapeutic. VSS on RA; IV saline locked. 0020- Pt up to bathroom had BM, flushed before RN could visualize. Pt stated BM was green and formed however, states he has gas pain. Chewable med given--pt denies any other needs. 0100- Pt states his gas pain has gone away.
[2018-11-05 05:45] VITALS: BP 124/68; PULSE 99; RESP 16; TEMP 36.8; O2SAT 96
[2018-11-05] MEDS: METOPROLOL IR 50 MG TABLET 100 MG PO (05:46)
[2018-11-05] MEDS: PANTOPRAZOLE 20 MG TABLET PO (05:46)
[2018-11-05 07:00] VITALS: O2SAT 99
[2018-11-05 07:06] LABS: Add Manual Diff / Slide Review NO; Basophils Absolute Auto 0 /uL (0-100); Basophils Percent Auto 0.3 % (0-2); Eosinophils Absolute Auto 500 /uL (0-450); Eosinophils Percent Auto 5.4 % (2-4); Hematocrit 26.7 % (41-53); Lymphocytes Absolute Auto 800 /uL (1100-4500); Lymphocytes Percent Auto 9.7 % (25-40); Mean Corpuscular HGB Conc 33.5 % (30-36); Mean Corpuscular Hemoglobin 32.1 PG (26-34); Mean Corpuscular Volume 95.9 fL (80-100); Monocytes Absolute Auto 900 /uL (0-900); Monocytes Percent Auto 11.1 % (3-14); Neutrophils Absolute Auto 6100 /uL (1500-7000); Neutrophils Percent Auto 73.5 % (50-75); Platelet Count 351 X10^3/uL (150-400); Red Blood Cell Count 2.79 X10^6/uL (4.5-5.9); Red Cell Distribution Width 14.6 % (11.6-14.8); White Blood Cell Count 8.4 X10^3/uL (4.5-11.0)
[2018-11-05 07:11] LABS: INR 1.6 (0.9-1.3); Prothrombin Time 18.2 SECONDS (10.1-12.7)
[2018-11-05] MEDS: POTASSIUM CHLORIDE 20 MEQ TAB 40 MEQ PO (08:32)
[2018-11-05] MEDS: FERROUS GLUCONATE 324 MG TABLET PO (08:32)
[2018-11-05] MEDS: MULTIVITAMIN 1 TABLET 1 TAB PO (08:32)
[2018-11-05] MEDS: LOSARTAN 50 MG TABLET PO (08:32)
[2018-11-05] MEDS: TAMSULOSIN 0.4 MG CAPSULE PO (08:32)
[2018-11-05 09:00] VITALS: BP 130/58; PULSE 60; RESP 16; TEMP 36.4; O2SAT 99
--- NOTE | 2018-11-05 09:21 | PM.DS.1 ---
History of Present Illness Date Patient Seen: 10/28/18 Chief complaint: BLOODY STOOLS Narrative: Written by Barby PABLO: The patient is a 73-year-old male with PMH of CAD, HTN, AFIB, BPH, MVR (AC w/ coumadin), and h/o colon popyps. Patient presented to the ED on 10/28/2017 after experiencing 7 episodes of blood stools. Stools described as dark red. Symptoms started at approximately 1600. Patient reports having an episode of bloody diarrhea every half an hour. After presentation to the ED patient experienced lightheadedness and fatigue. Until that time and earlier during the day did not experience abdominal pain, nausea or vomiting. Denies hematemesis, and hematochezia. Denies rectal pain with defecation. Patient does report abdominal distention and bloating since 10/24/2018, which he notes to have developed after starting lovenox injections. On the morning on 10/27/2017 patient underwent colonoscopy for routine colorectal surveilance. During the procedure 4 colon polyps removed in retained for pathology. Colonoscopy also revealed mild diverticulosis that was limited to the sigmoid colon and grade 1 internal hemorrhoids. Initial lab work on presentation to the ED revealed a hemoglobin of 13.5. Upon arrival to the ED he notes experiencing lightheadedness, at that time he was also found to be hypotensive. BP improved with 1 L NS bolus. Patient has not experienced any chest pain, palpitation, abdominal pain, hematemesis, or further episodes of bloody diarrhea. Patient is known to be chronically anticoagulated w/ Coumadin. He was asked to have coumadin stopped on 10/24/2018 in lieu of colonoscopy, in the interim he was bridged with lovenox. Coumadin was restarted on the morning of 10/28/2018. He was instructed to continue lovenox bridge until 10/30/2017. Discharge Providers Date of admission: 10/28/18 23:33 Discharge Date: 11/05/18 Primary care physician: Ambar Lowry MD Consults: 10/29/18 03:40 Consult to General Surgery Routine Comment: Consulting Provider: David Lehman Reason for consultation: GIB Has provider been notified: No Discharge provider: Mary Gavin DO Summary Discharge Diagnosis: 1. Acute GI bleeding, secondary to recent colonoscopy with polypectomy, present on admission. Resolved. 2. Acute blood loss anemia, present on admission. Stable. 3. Hyponatremia, acuity unclear, present on admission. Stable. 4. Atrial fibrillation with RVR, chronic, present on admission. RVR resolved. 5. History of mitral valve repair, present on admission. Stable. 6. BPH, chronic, present on admission. Stable. 7. Hypertension, chronic, present on admission. Stable. Hospital Course: Baltazar Reeves is a 73-year-old male with a past medical history significant for CAD, hypertension, hyperlipidemia, and atrial fibrillation and mitral valve replacement on warfarin, who presented with bright red blood per rectum after recent colonoscopy with polypectomy. 1. Acute GI bleeding, secondary to recent colonoscopy with polypectomy, present on admission. Resolved. -Patient developed recurrent bleeding on Lovenox bridge to warfarin after colonoscopy with polypectomy. The Lovenox has since been discontinued. Continued Coumadin as below and allowed for a gradual rise of his INR. He received 2 U PRBC and 2 U FFP. No recurrent bleeding. -General surgery was consulted. We appreciate their time and care of the patient. 2. Acute blood loss anemia, present on admission. Stable. -Patient presented with acute blood loss after recent colonoscopy with polypectomy on Lovenox bridge to warfarin. -Received 2 U PRBC and 2 U FFP. No need for further transfusion. Patient does have iron deficiency due to acute blood loss and started iron and vitamin-C supplementation with ferrous gluconate 324 mg daily with food and ascorbic acid 500 mg daily until anemia resolved. 3. Hyponatremia, acuity unclear, present on admission. Stable. -Sodium stable at 130. Continued 1200 cc fluid restriction. Continued to monitor sodium daily. 4. Atrial fibrillation with RVR, chronic, present on admission. RVR resolved. -Continued digoxin 0.25 mg daily and metoprolol tartrate 100 mg in the morning and 50 mg at night. -Patient developed recurrent bleeding on Lovenox bridge to warfarin after colonoscopy with polypectomy. Discontinued Lovenox. Cautiously resumed anticoagulation with Coumadin. Patient is typically on 5 mg everyday other than Thurs/Sat in which he is on 10 mg. Patient has received several doses of warfarin with gradual slow increase in INR, now 1.6. He has received 5 doses total 5 mg, 2.5 mg, 5 mg, 10 mg and 10 mg. Discharged with instruction to continue normal warfarin dosage schedule and to follow up at INR clinic on Saturday for further management and adjustment of warfarin if needed. 5. History of mitral valve repair, present on admission. Stable. -The patient is chronically anticoagulated for atrial fibrillation and mitral valve repair see above. 6. BPH, chronic, present on admission. Stable. -Continued tamsulosin 0.4 mg daily. 7. Hypertension, chronic, present on admission. Stable. -Continued losartan 100 mg daily and metoprolol tartrate 100 mg daily. Status at Discharge Functional status at discharge: independent ambulation Overall status at discharge: patient is back to baseline Exam Vital Signs (past 8 hours): - 11/05/18 05:45 11/05/18 07:00 11/05/18 09:00 Temperature 98.3 F 97.5 F L Pulse Rate 99 H 60 Respiratory Rate 16 16 Blood Pressure 124/68 130/58 L Pulse Oximetry 96 99 99 Oxygen Delivery Method Room Air Oxygen Flow Rate 0 Narrative Exam Narrative: General: Older gentleman sitting in bedside chair and in no acute distress, well-developed, well-nourished, appropriately interactive. HEENT: Normocephalic, atraumatic. External ears without defect. Pupils equal, round, and reactive to light. Anicteric sclerae, moist conjunctivae, and no lid lag. Neck: Supple with full range of motion. No jugular venous distension. No bruits. No lymphadenopathy or thyromegaly. Cardiovascular: Regular rate and rhythm with 3/6 systolic ejection murmur. No rubs or gallops appreciated. Pulmonary: Clear to auscultation bilaterally without crackles, wheezes, or rhonchi. Normal respiratory effort with no use of accessory muscles. Abdomen: Soft, bowel sounds present, nontender, nondistended. No hepatosplenomegaly or masses appreciated. Extremities: No clubbing, cyanosis, or edema. Skin: Normal temperature, turgor, and texture; no rash, ulcers, or subcutaneous nodules appreciated. Neurological: Cranial nerves grossly intact. Psychiatric: Normal mood and affect. Alert and oriented to person, place, and time. Objective Labs Result Diagrams: 11/05/18 06:40 11/04/18 05:15 Labs: Laboratory Results - last 24 hr 11/04/18 11/05/18 11/05/18 11:40 06:40 06:40 WBC 8.4 RBC 2.79 L Hgb 9.0 L Hct 26.7 L MCV 95.9 MCH 32.1 MCHC 33.5 RDW 14.6 Plt Count 351 Neut % (Auto) 73.5 Lymph % (Auto) 9.7 L [place] % (Auto) 11.1 Eos % (Auto) 5.4 H Baso % (Auto) 0.3 Neut # (Auto) 6100 Lymph # (Auto) 800 L [place] # (Auto) 900 Eos # (Auto) 500 H Baso # (Auto) 0 PT 15.6 H 18.2 H INR 1.3 1.6 H Discharge Plan Discharge Plan Patient Disposition: Home Discharge comment: You are being discharged home. Please follow up at the [facility] by Saturday to have your INR checked. Your current INR is 1.6. Continue your normal warfarin dose until then. Please follow-up with Dr. Lowry at your scheduled appointment regarding your hospitalization. You have been prescribed iron and vitamin-C supplementation once daily to be taken with food and continued until your anemia has resolved. Iron may cause constipation in the future and if so recommend stool softener and MiraLax as needed. If he began having red bloody bowel movements please be seen by medical provider or call 911 immediately. Discharge Med Rec/Prescriptions Prescriptions: New ferrous gluconate 324 mg (38 mg iron) Tablet 324 mg PO DAILY Qty: 30 RF: 0 ascorbic acid (vitamin C) [Vitamin C] 500 mg Tablet 500 mg PO DAILY Qty: 30 RF: 0 Continued losartan 50 MG tablet 100 mg PO DAILY Qty: 0 RF: 0 warfarin 10 MG tablet 12.5 mg PO QDAY Qty: 0 RF: 0 aspirin 81 mg Tablet,Delayed Release (Dr/Ec) 81 mg PO DAILY Qty: 0 RF: 0 multivitamin tablet 1 tab PO DAILY RF: 0 metoprolol tartrate 100 mg tablet 100 mg PO QAM RF: 0 metoprolol tartrate 50 mg tablet 50 mg PO .qhs RF: 0 digoxin 250 mcg tablet 0.25 mg PO DAILY RF: 0 enoxaparin [Lovenox] 80 mg/0.8 mL syringe 80 mg SUBCUT Q12H Qty: 7.2 RF: 0 sulfamethoxazole-trimethoprim 400-80 mg Tablet See Rx Instructions .ROUTE .COMPLEX RF: 0 tamsulosin 0.4 mg Capsule 0.4 mg PO DAILY RF: 0 Other Ambulatory Orders: Prothrombin Time INR (Routine) Timeframe: 2 Days Location: Laboratory Ordered By: Mary Gavin Follow up/Referrals: Ambar Lowry MD [Primary Care Provider] - 1 Week (appt:11/12 @ 11:[address] lowry [phone]) Provider Discharge Instructions Diet: Diet as Tolerated, Low-fat, Low-sodium and Low-cholesterol Activity: Activity as tolerated Visit Report/Discharge Packet Instructions: DI for Blood Transfusion, How to Prevent Falls, Gastrointestinal Bleeding Discharge Data Primary Care Provider: Ambar Lowry Attending Provider: Barby Corrales Admit Date/Time: 10/28/18 23:33
[2018-11-05] MEDS: ASCORBIC ACID 500 MG TABLET PO (11:07)
--- NOTE | 2018-11-05 12:00 | PC.NURSE ---
PATIENT HAD A FORMED BROWN BM THIS AM, WITH ONE END LIGHT BLACKISH. NO JEN BLOOD. IS ON IRON SUPPLEMENTS. MD AWARE. PATIENT IS W/ VSS. NO S/SX'S OF DISTRESS. INDEP IN RM. REVIEWED DC HOME INSTRUCTIONS THOROUGHLY WITH PATIENT. CLARIFIED WARFARIN DOSING WITH MD PRIOR TO DC HOME AND EDITED IN INK PER MD INSTRUCTION. COPY ON TO CHART. PATIENT AGREES TO F/U AT COUMADIN/LAB CLINIC ON SATURDAY PER INSTRUCTED BY MD. HE STATES HE IS USED TO DOING THIS, AND JUST HAS TO WALK IN TO HAVE IT DRAWN. PATIENT'S SPOUSE ARRIVED. SCRIPTS TO PATIENT. HE WILL CALL TO CONFIRM HIS F/U APPT SCHEDULED, BUT MAY HAVE TO HAVE IT RESCHEDULED R/T HIS 'S APPT SAME DAY. ENCOURAGED HIM TO CALL CLINIC TODAY TO HAVE RESOLVED. HE CONFIRMS UNDERSTANDING. TAKEN TO VEHICLE ESCORTED BY GROUP BILLING COORDINATOR BY WC WITH ALL BELONGINGS AND PAPERWORK.
--- NOTE | 2018-11-05 12:45 | PC.NURSE ---
IV catheter During chart review, I noticed that for was IV catheter intact I clicked no. it was however all intact when taken out of patient.
== END 2018-11-05 12:04 | disposition home or self-care (01) | DRG 920 ==
LOC: ED 23:12 → AC 23:35 → ICU 10-29 01:37 → AC 11-03 16:07
PROVIDERS: Family Medicine; Internal Medicine; Surgery; Admitting Provider Nurse Practitioner Gerontology; Emergency Provider Emergency Medicine; Family Provider Family Medicine; PCP Family Medicine; Referring Provider Surgery; Visit Provider Nurse Practitioner Gerontology
DX: K91.840 Postprocedural hemorrhage of a digestive system organ or structure following a digestive system procedure (principal); D62 Acute posthemorrhagic anemia; E87.1 Hypo-osmolality and hyponatremia; I48.2 Chronic atrial fibrillation; Z79.01 Long term (current) use of anticoagulants; I10 Essential (primary) hypertension; E86.9 Volume depletion, unspecified; I25.10 Atherosclerotic heart disease of native coronary artery without angina pectoris; Z87.891 Personal history of nicotine dependence; N40.1 Benign prostatic hyperplasia with lower urinary tract symptoms; R35.0 Frequency of micturition; I95.9 Hypotension, unspecified; Z86.010 Personal history of colon polyps; K64.8 Other hemorrhoids; K57.30 Diverticulosis of large intestine without perforation or abscess without bleeding; D12.3 Benign neoplasm of transverse colon; D12.6 Benign neoplasm of colon, unspecified
CPT/HCPCS: 36415; 36430; 36591; 74018; 80048; 80053; 80162; 83540; 83550; 83735; 83880; 85014; 85018; 85025; 85027; 85610; 85730; 86644; 86850; 86900; 86901; 86927; 87797; 96360; 99231; 99283; P9016; C9113; J1650; J1756; J2250; J2405; J3010

== ENCOUNTER → 2021-05-12 11:30 | Outpatient (CLI) | payer OTHER, SELFPAY ==
[2018-10-29 01:45] VITALS: BMI 29.9
--- NOTE | 2021-05-12 | DI.RAD.S_ITS ---
PROCEDURE: XR LUMBAR SPINE 2-3V INDICATIONS: LOW BACK PAIN TECHNIQUE: 3 views of the lumbar spine were acquired. COMPARISON: [facility], CT, CHEST ANGIO-PE, 10/26/2009, 6:15. [facility], CT, CT ABDOMEN PELVIS WITH CONTRAST, 09/05/2020, 13:34. FINDINGS: Bones: 5 [id number] vertebrae are present. There is straightening of lumbar lordosis. No acute vertebral body compression fractures. There is a chronic appearing compression fracture involving the L2 vertebral body. No suspicious bony lesions. Multilevel lumbar spondylosis most pronounced in the mid and lower lumbar spine. Soft tissues: Overlying bowel gas pattern is normal. No suspicious soft tissue calcifications. Vascular calcifications are present. IMPRESSION: 1. Lumbar spine without acute fracture . Multilevel lumbar spondylosis. 2. Chronic appearing compression fracture involving the L2 vertebral body. If this localizes to level of patient's symptoms, consider further characterization with MRI. 3. Straightening of lumbar lordosis likely related to positioning and/or concurrent muscle spasms. 4. Atherosclerotic vascular disease. Dictated by: Semaj Boateng M.D. on 05/12/2021 at 14:03 Approved by: Semaj Boateng M.D. on 05/12/2021 at 14:10
== END ==
PROVIDERS: Family Provider Family Medicine; PCP Family Medicine; Referring Provider Family Medicine; Visit Provider Family Medicine
DX: M54.50 Low back pain, unspecified (principal); M47.816 Spondylosis without myelopathy or radiculopathy, lumbar region; M48.56XA Collapsed vertebra, not elsewhere classified, lumbar region, initial encounter for fracture; I25.10 Atherosclerotic heart disease of native coronary artery without angina pectoris
CPT/HCPCS: 72100